=== PATIENT | female | born 1960 | race Caucasian/White ===

== ENCOUNTER → 2016-10-02 | Outpatient (CLI) | payer MEDICARE, MEDICAID ==
[~2016-10-02] MED LIST: ALPR0.5T PO; ASPI81TA50 PO; BACL10TA PO; BIOT1CAP3 PO; CHOL10003 PO; CYCL10TA2 PO; DOXA4TAB3 PO; GEMF600T3 PO; HYDR-2672 PO; HYDR-2762 PO; IBUP-1027 PO; INSU100V10 IJ; INSU100V8 SQ; METH-38 PO; MULT-658 PO; TIZA4CAP PO; VITMAIN; magnes
--- NOTE | 2016-10-03 01:28 | PAIN ---
DATE OF SERVICE: 10/02/2016 PROGRESS NOTE DIAGNOSES: 1. Myofascial pain. 2. Lumbar degenerative disk disease and post-lumbar laminectomy syndrome. 3. Cervical radiculopathy with cervical degenerative disk disease. HISTORY OF PRESENT ILLNESS: The patient is a 56-year-old female who returns for followup status post trigger point injections and medication management with both hydrocodone 7.5 and 10 mg for significant breakthrough pain. The patient reports she has had a recent upper respiratory cold and cough with significant pain left in the upper back as well as the low back and shoulders. The patient reports the cold and cough had exacerbated her pain significantly. She just finished a round of Augmentin and albuterol inhaler she is using currently, still has a bit of a cough, but her pain is increased, it is 9 on a scale of 10. The patient reports constant and stabbing as well as the burning pain between the shoulders bilaterally. The patient reports no new motor or sensory deficits; however, reports about 60% to 70% improvement with the medications currently, but has been taking more of the 10 mg more recently. The patient reports no side effects with the medication. Rates the pain as 9 on a scale of 10 today. The patient's old chart was reviewed as her current medication regimen updated. Current review of systems updated today as well. PHYSICAL EXAMINATION: VITAL SIGNS: Today, blood pressure is 143/84, pulse 84, respirations 20, temperature 98.1 degrees Fahrenheit, height is 5 feet 9 inches, weight 166 pounds. GENERAL: The patient is awake, alert, oriented, appropriate, very pleasant demeanor. HEENT: Head shows normocephalic, atraumatic. Extraocular movements are intact and symmetrical. Oral cavity, mucous membranes are moist and pink. Dentition is intact. NECK: Shows anterior throat supple without palpable lymphadenopathy noted. Swallow reflex is symmetrical. Neck shows full rotational motion of cervical spine. CHEST: Shows breath sounds clear to auscultation bilaterally. HEART: Shows S1 and S2 clear. ABDOMEN: Soft, nontender, nondistended. No palpable organomegaly is noted. BACK: Shows grossly midline spine, the paraspinous musculature in the cervical distribution shows some firm rope-like musculature in the inferior and middle aspect of the posterior paraspinous musculature, also into the superior medial and lateral trapezius slightly worse on the right than the left, but symmetrical in appearance. No radiation of pain. There is rope-like musculature, very firm, tender, greater on the right than the left, again in the rhomboid and the thoracic paraspinous musculature, diffusely tender as well without radiation. PLAN: Options were discussed with the patient. We will refill the patient's hydrocodone, both 7.5 and 10 mg sizes with only 20 of the 10 mg, given a 2-month supply of the 7.5 mg. The patient will wait until she is over her cold. I will have her return in approximately 4 weeks' potential for trigger point injections at that time if necessary. KELY MORTENSEN MD DR: CHEL/gomez JOB#: [id number] / [id number]
== END | disposition home or self-care (01) ==
LOC: PNCL 10:10
PROVIDERS: ATTEND Anesthesiology
DX: M51.36 Other intervertebral disc degeneration, lumbar region (principal); M96.1 Postlaminectomy syndrome, not elsewhere classified; M79.1 Myalgia; M50.30 Other cervical disc degeneration, unspecified cervical region
CPT/HCPCS: G0463

== ENCOUNTER → 2016-11-27 | Outpatient (CLI) | payer MEDICARE, MEDICAID ==
[~2016-11-27] MED LIST changes: +BUPIVACAINE MPF 0.25% 10 ML VIAL. ONE; +IOHEXOL 180 MG/ML 10 ML VIAL. ONE; +methylPREDNISolone ACETATE 40 MG/ML VIAL. ONE
--- NOTE | 2016-11-28 05:46 | PN ---
DATE: DIAGNOSES: 1. Myofascial pain. 2. Lumbar degenerative disk disease with lumbar post-laminectomy syndrome. 3. Left greater trochanteric bursitis. HISTORY OF PRESENT ILLNESS: The patient is a 56-year-old female who returns for followup status post trigger point injection as well as medication management with hydrocodone, has been doing fairly well with significant pain in her left hip over the past month or so. The patient reports it 10 on scale 10. It has been "popping out" on the left if she bent down at home and ____ back up and has significant knife-like pain in the left lateral aspect of the thigh and the gluteus, which has been significantly painful, feels that her leg has been popping out of joints. The patient reports she has had no actual dislocation for hip or any injury that might cause that, but it feels that way when she is walking. She is having to grab her lateral thigh, which is very tender and painful as well as the posterior gluteus and inferior aspect as well. The patient reports otherwise doing fairly well. Her neck and upper extremities and shoulders are doing better, still with some muscular pain now, but the pain in her left hip is much more significant. The patient reports no other motor or sensory deficits. No new bowel or bladder incontinence or other complaints. PHYSICAL EXAMINATION: VITAL SIGNS: The patient's blood pressure is ____, pulse 81, respirations 18, and temperature 98.0 degrees Fahrenheit. Height is 5 feet 9 inches. Weight 165 pounds. GENERAL: The patient is awake, alert, oriented, appropriate, very pleasant demeanor. HEENT: Head shows normocephalic, atraumatic. Extraocular movements are intact and symmetrical. Oral cavity, mucous membranes moist and pink. Dentition is intact. NECK: Shows anterior throat supple without palpable lymphadenopathy noted. Swallow reflex is symmetrical. CHEST: Shows normal on inspection. Breath sounds are clear to auscultation bilaterally. HEART: Shows S1 and S2 clear. ABDOMEN: Soft, nontender, and nondistended. No palpable organomegaly is noted. No rebound or guarding demonstrated. BACK: Shows spine grossly midline. Moderate tenderness to palpation in the inferior aspect of the cervical paraspinous musculature as well as the rhomboid distributions in the superior and medial trapezius bilaterally, somewhat more on the right than the left with some minor areas of trigger point regions of musculature, which is very tender and firm and rope-like with palpation. The patient's lower extremities showed deep tendon reflexes at 1+ in the patellar and tendo calcaneus tendons are equal. Motor exam is approximately 4 on a scale of 5, but symmetrical with dorsiflexion, extension, quadriceps and hamstring flexion bilaterally. Examination of the patient's hip shows significant tenderness with palpation over the left greater trochanter with even moderate palpation. The patient pulls away from examining hand significantly, reports significant severe pain. The patient also has some tenderness over the posterior gluteus diffusely and over the ischial tuberosity with the left hip flexed, but not on the right side and right lateral trochanter shows no tenderness. Options were discussed with the patient. The patient's old chart was reviewed as her current medication regimen updated. Current review of systems updated today as well. We will proceed with left greater trochanteric bursa injection with C-arm fluoroscopic guidance again today. Risks were discussed including but not limited to bleeding, infection, possibility of intravascular injection sequelae, spread of local anesthetic and numbness, side effects of steroid medications, exposure to fluoroscopy and poor results regarding pain control. The patient understands and wishes to proceed. The patient will return to clinic in approximately 2 weeks for followup, was counseled on return appointment, activity level and side effects to be aware of. DIAGNOSIS: Left greater trochanteric bursitis. PROCEDURES: Left greater trochanteric bursa injection with C-arm fluoroscopic guidance under sterile prep and drape using local anesthetic. MEDICATIONS INJECTED: Depo-Medrol 40 mg plus 3 mL of preservative-free 0.25% bupivacaine. CONDITION AT DISCHARGE: Stable. The patient tolerated procedure well, had no complications. KELY MORTENSEN MD DR: CHEL/gomez JOB#: [id number] / [id number]
== END | disposition home or self-care (01) ==
LOC: PNCL 11:23
PROVIDERS: ATTEND Anesthesiology
DX: M70.62 Trochanteric bursitis, left hip (principal); M51.36 Other intervertebral disc degeneration, lumbar region; M96.1 Postlaminectomy syndrome, not elsewhere classified
CPT/HCPCS: 20610; 77002; J1030; J3490; 20605

== ENCOUNTER → 2017-01-22 | Outpatient (CLI) | payer MEDICARE, MEDICAID ==
[~2017-01-22] MED LIST changes: -IOHEXOL 180 MG/ML 10 ML VIAL. ONE
--- NOTE | 2017-01-23 02:21 | PAIN ---
DATE OF SERVICE: 01/22/2017 DIAGNOSES: 1. Myofascial pain. 2. Lumbar degenerative disk disease with post lumbar laminectomy syndrome. 3. Left greater trochanteric bursitis. HISTORY OF PRESENT ILLNESS: The patient is a 56-year-old female who returns for followup, last seen 11/27/2016. The patient did very well after left greater trochanteric injection about 90% improved. The patient's main complaint today is left elbow pain. She is doing some increased activity in her house picking up lot of sticks and debris in the yard with some significant pain in the left elbow, mostly in the lateral aspect and also in the medial aspect. The patient reports it is very painful, it is hurting significantly. She also poked herself in the eye with a tonio mack branch and had significant pain in her right eye, but this has resolved, this was about 3-4 weeks ago and it caused her to use ____ hydrocodone and normally secondary to the pain, the patient reports otherwise doing well. No new motor or sensory deficits. She ____ hydrocodone without side effects and maintaining hydration. The patient reports she has been awakening from sleep about 3-4 times at night with her left elbow hurting, has to reposition, take pain medicine, get out of bed and walk around, otherwise doing well. The patient reports the pain is a 10 on a scale of 10 in the left arm, it is aching, sharp, dull, tight, tingling and unbearable in the elbow. The patient reports no new motor or sensory deficits, no new bowel or bladder incontinence. PHYSICAL EXAMINATION: VITAL SIGNS: The patient's blood pressure 141/77, pulse 73, respirations are 18, temperature 98.3 degrees Fahrenheit, height is 5 feet 8 inches, weight 165 pounds. GENERAL: The patient is awake, alert, oriented, appropriate, very pleasant demeanor. HEENT: Head shows normocephalic, atraumatic. Extraocular movements are intact and symmetrical. Oral cavity shows mucous membranes moist and pink. Dentition is intact. NECK: Shows anterior throat supple without palpable lymphadenopathy noted. Swallow reflex is symmetrical. CHEST: Shows normal on inspection. Breath sounds clear to auscultation bilaterally. HEART: Shows S1 and S2 clear. No murmurs auscultated. ABDOMEN: Soft, nontender, nondistended. No palpable organomegaly is noted. No rebound or guarding demonstrated. BACK: Shows spine grossly in the midline. There is some mild tenderness with palpation in the lower lumbar distribution and also in the shoulders and the superior medial trapezius, but without specific radiation or asymmetry. The patient shows some decreased pain, but still some mild pain over the left greater trochanter of the hip, but without radiation. On exam today, the patient's upper extremities showed significant tenderness over the left elbow, mostly with palpation over the tendon insertions of the flexor tendon on the lateral and medial elbow. Options were discussed with the patient and the patient's old chart was reviewed as her current medication regimen updated. Current review of systems updated to date as well. We will proceed with trigger point injections of the flexor tendons on the medial aspect and lateral aspect of the elbow. Risks were discussed including but not limited to bleeding, infection, possibility of intravascular injection sequelae, spread of local anesthetic and numbness, side effects of steroid medication and poor results regarding pain control. The patient understands and wishes to proceed. The patient will return to the clinic in approximately 2 weeks for followup. She was counseled on return appointment, activity level and side effects to be aware of. The patient given refill prescription for hydrocodone both 7.5 mg and 10 mg 20 tablets for increased pain as she may experience after her injections or when she is working in the yard as she has done well with this in the past with only limited number of these without side effects. The patient was counseled as to return appointment as well as activity level and side effects to be aware of with the medications and injections today. DIAGNOSIS: Myofascial pain. PROCEDURE: Trigger point injections left elbow in the insertions of the medial and lateral flexor tendons. Medications injected is total of 40 mg Depo-Medrol and total of 4 mL of 0.25% bupivacaine after negative aspiration at each level. CONDITION AT DISCHARGE: Stable. The patient tolerated procedure well, had no complications. KELY MORTENSEN MD DR: CHEL/gomez JOB#: [id number] / [id number]
== END | disposition home or self-care (01) ==
LOC: PNCL 10:15
PROVIDERS: ATTEND Anesthesiology
DX: M79.1 Myalgia (principal); M51.36 Other intervertebral disc degeneration, lumbar region; M96.1 Postlaminectomy syndrome, not elsewhere classified
CPT/HCPCS: 20552; J1030; J3490

== ENCOUNTER → 2017-04-16 | Outpatient (CLI) | payer MEDICARE, MEDICAID ==
[~2017-04-16] MED LIST changes: -HYDR-2672 PO; +HYDR-2766 PO; -INSU100V10 IJ; +INSU100V11 IJ
== END | disposition home or self-care (01) ==
LOC: PNCL 11:25
PROVIDERS: ATTEND Anesthesiology
DX: M79.1 Myalgia (principal); M51.36 Other intervertebral disc degeneration, lumbar region; M96.1 Postlaminectomy syndrome, not elsewhere classified; M70.62 Trochanteric bursitis, left hip; Z88.6 Allergy status to analgesic agent; Z91.048 Other nonmedicinal substance allergy status
CPT/HCPCS: 20552; J1030; J3490

== ENCOUNTER → 2017-06-11 | Outpatient (CLI) | payer MEDICARE, MEDICAID ==
[~2017-06-11] MED LIST changes: -BUPIVACAINE MPF 0.25% 10 ML VIAL. ONE; -methylPREDNISolone ACETATE 40 MG/ML VIAL. ONE
--- NOTE | 2017-06-11 12:20 | PAIN ---
DATE OF SERVICE: 06/11/2017 DIAGNOSES: 1. Myofascial pain. 2. Lumbar degenerative disk disease with post-lumbar laminectomy syndrome. 3. Left greater trochanteric bursitis. HISTORY OF PRESENT ILLNESS: Ms. Burris is a 57-year-old female who returns for followup, status post trigger point injections, most recently, and left elbow flexor tendon insertion injection. The patient reports she did very well with this, about 85% improvement overall. Still has some pain returning in the elbow, but only very minimal. She has been increasing her activity with greater ease and comfort, with much better success and pain control in the left arm, especially. The patient reports some pain in the base of the neck, shoulders, upper back and into the left arm and to elbow again, but much reduced from what it was previously. The patient reports the pain is 10 on a scale of 10 at its worst, 9 on average, and is 5 on a scale of 10 currently, and is 5 when has least rating. The patient reports no new motor or sensory deficits, no new bowel or bladder incontinence or other complaints. Overall feels that she is doing better. PAST MEDICAL HISTORY: Significant for diverticulosis, hearing loss, headaches, irritable bowel syndrome. Also includes diabetes, insulin-dependent. PREVIOUS SURGERY: Include hysterectomy, lumbar spine surgery, tonsillectomy, adenoids, right ankle surgery, cholecystectomy, jaw surgery. CURRENT MEDICATIONS AND REVIEW OF SYSTEMS: The patient's current medication list was updated and reviewed today, as was her review of systems which is positive for those items mentioned in history of present illness. All systems reviewed and otherwise negative. ALLERGIES: THE PATIENT IS ALLERGIC TO TAPE, CODEINE AND MOLD. PHYSICAL EXAMINATION: VITAL SIGNS: Today, the patient's blood pressure is 132/60, pulse 68, respirations are 18, temperature is 98.2 degrees Fahrenheit, height is 5 feet 9 inches, weight 163 pounds. GENERAL: The patient is awake, alert, oriented, appropriate, very pleasant demeanor. HEENT: Examination shows normocephalic, atraumatic. Extraocular movements are intact and symmetrical. The patient wears eyeglasses. Oral cavity, mucous membranes are moist and pink. Dentition is intact. NECK: Shows anterior throat supple without palpable lymphadenopathy noted. Swallow reflex is symmetrical. Neck shows full rotational motion of the cervical spine without tenderness or difficulty. CHEST: Shows normal on inspection. Breath sounds clear to auscultation bilaterally. HEART: Shows S1 and S2 clear. ABDOMEN: Soft, nontender, nondistended. No palpable organomegaly is noted. No rebound or guarding demonstrated. BACK: Shows spine grossly midline. Normal appearing thoracic kyphosis, some previous surgical scar is noted in the lumbar distribution with some flattening of lumbar lordotic curvature. No tenderness over the sacrum or sacroiliac regions. Paraspinous musculature in the lumbar distribution shows some mild tenderness also in the mid thoracic distribution, between the shoulder blades and the rhomboid musculature. Very moderately tender, diffusely, but without trigger points or radiation. EXTREMITIES: Lower extremities showed deep tendon reflexes at 1+ in the patellar and tendo-calcaneus tendons. Motor exam is strong with 5/5 dorsiflexion and extension. Upper extremities showed deep tendon reflexes 2+ in the biceps and triceps tendons. 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 Left elbow showed some moderate tenderness on the lateral epicondyle with deep palpation but only in this region. Anterior medial is nontender with palpation at this time. PLAN: Options were discussed with the patient. The patient's old chart was reviewed, as was her current medication regimen updated. Current review of systems updated today as well. We will hold on any further injections, as she is doing quite a bit better and would like to hold on this at this time. We will refill the patient's medication. She is doing well with hydrocodone 7.5 mg with occasional 10 mg. We gave her 20 of these to last for 2 months. She has no problem with these. She has had appropriate K-TRACS reporting as well as appropriate urinalysis to date. Also patient will follow up in approximately 2 months. We gave 2-month prescription with instructions, side effects to be aware of. Also discussed the patient's activity level, especially with her left elbow and to increase activity as tolerated. To maintain stretching and strengthening exercises with her back. Also to watch her glucose levels very closely as her diabetes has been somewhat hard to control in the past, with regards to alcohol intake as well as diet in general, and hydration. The patient understands and agrees and will follow up as scheduled. KELY MORTENSEN MD DR: CHEL/gomez JOB#: [id number] / [id number]
== END | disposition home or self-care (01) ==
LOC: PNCL 10:30
PROVIDERS: ATTEND Anesthesiology
DX: M51.36 Other intervertebral disc degeneration, lumbar region (principal); M79.1 Myalgia; K58.9 Irritable bowel syndrome, unspecified; Z79.4 Long term (current) use of insulin; E11.9 Type 2 diabetes mellitus without complications; M70.62 Trochanteric bursitis, left hip
CPT/HCPCS: G0463

== ENCOUNTER → 2017-09-03 | Outpatient (CLI) | payer MEDICARE, MEDICAID ==
[~2017-09-03] MED LIST changes: +BUPIVACAINE MPF 0.25% 10 ML VIAL. ONE; +methylPREDNISolone ACETATE 40 MG/ML VIAL. ONE
--- NOTE | 2017-09-03 21:45 | PAIN ---
DATE OF SERVICE: 09/03/2017 DIAGNOSES: 1. Myofascial pain. 2. Lumbar degenerative disk disease with lumbar post-laminectomy. 3. Left greater trochanteric bursitis. HISTORY OF PRESENT ILLNESS: The patient is a 57-year-old female who returns for a followup status post medication management with hydrocodone, also trigger point injections and left elbow medial and lateral flexor tendon insertion injections. The patient last had these in March of this year, did very well, but her elbow is becoming much more painful. She has been using it with some patient care techniques. One of her aunts who recently and it has aggravated her elbow significantly. She has seen her primary care physician about this and has recommended a sling for about 6 weeks. The patient had been unable to do this so far as she had too much activity to take care of and work at home to do. The patient reports still significant pain in the left arm, elbow, radiating to the forearm both medially and laterally at the epicondyles on the elbow as she had previously. The patient reports otherwise significant low back pain fairly well controlled with her medications without significant side effects. The patient reports about 70-80% improvement with the medications in the low back, but the elbow is significantly more painful. The patient rates the elbow pain a 10 on a scale 10 at its worst, 8-9 on average and 5 at its least and is an 8 today. The patient reports it is cramping, aching, burning, tight. It is becoming severe and unbearable at times into the left elbow. The low back, however, is aching and dull, mostly better with sitting and resting, worse with walking and standing. No significant radiation to the lower extremities, some on the right leg only. The patient reports it does not awaken her from sleep at night from her back, but her arm does when she lies on her left side. Even getting dressed, doing a repetitive motions or reaching over head aggravates the pain as well. PHYSICAL EXAMINATION: VITAL SIGNS: Today, the patient's blood pressure is 151/60, pulse 90, respirations 18, temperature is 98.0 degrees Fahrenheit, height is a 5 feet 9 inches, weight is 165 pounds. GENERAL: The patient is awake, alert, oriented, appropriate, very pleasant demeanor. HEENT: Shows normocephalic, atraumatic. Extraocular movements are intact, symmetrical. Oral cavity shows mucous membranes are moist and pink. Dentition is intact. NECK: Shows anterior throat is supple without palpable lymphadenopathy noted. Swallow reflex is symmetrical. CHEST: Shows normal on inspection. Breath sounds are clear to auscultation bilaterally. HEART: Shows S1, S2 clear. ABDOMEN: Soft, nontender, nondistended. No palpable organomegaly is noted. No rebound or guarding demonstrated. MUSCULOSKELETAL: Back shows spine grossly in the midline. Well healed surgical scars noted in the lumbar distribution with some minor flattening of the lumbar lordotic curvature. No significant tenderness noted with palpation of the lumbar paraspinous muscles, which are symmetrical. Good rotational motion both laterally as well as extension and flexion performed at the lumbar spine without difficulty or pain reported. The patient's lower extremities show deep tendon reflexes 1+ in the patellar and tendo-calcaneus tendons. Motor exam is strong with 5/5 dorsiflexion, extension, quadriceps and hamstring flexion and equal. Upper extremities show deep tendon reflexes at 2+ in the biceps, triceps tendons. Significant tenderness over the medial and lateral epicondyle of the left elbow with even light palpation varies significantly tender. No obvious swelling, no erythema or changes. The patient shows good motion of the elbow with both rotation, with pronation, supination as well as flexion and extension of the elbow, but significantly guarded and slow and deliberate movements. Right side is normal. Peripheral pulses are 2+, radial distribution. No peripheral edema is noted. PLAN: Options were discussed with the patient. The patient's old chart was reviewed as her current medication regimen and updated. Current review of systems updated today as well. We will proceed with injection of the medial and lateral flexor tendon insertions at the left elbow. Risks were discussed including but not limited to bleeding, infection, possibility of intravascular injection sequelae, spread of local anesthetic and numbness, side effects of steroid medication and poor results regarding pain control. The patient understands and wished to proceed. The patient will return to the clinic in approximately 4 weeks for a followup, was counseled on return appointment, activity level and side effects to be aware of. The patient also cautioned to watch her blood sugar as she has had some difficulty regulating this as well and we will only use 20 mg of Depo-Medrol today. She acknowledges this as well. DIAGNOSES: 1. Myofascial pain. 2. Lumbar post-laminectomy syndrome with lumbar degenerative disk disease. PROCEDURE: Left elbow flexor tendon insertion injection at the medial and lateral epicondyle under sterile prep and drape using local anesthetic. MEDICATIONS INJECTED: A total of 20 mg Depo-Medrol plus total of 6 mL of 0.25% bupivacaine, 3 mL at each side after negative aspiration each. The patient's condition at discharge is stable. The patient tolerated the procedure well, had no complications. The patient was given a refill for hydrocodone with instructions and side effects to be aware of, was given her a 2-month refill as well. The patient has had appropriate K-TRACS reporting as well as urinalysis to date. We will have urinalysis done today as well as routine screening. KELY MORTENSEN MD DR: CHEL/gomez JOB#: [id number] / [id number]
== END | disposition home or self-care (01) ==
LOC: PNCL 10:51
PROVIDERS: ATTEND Anesthesiology
DX: M79.1 Myalgia (principal); M96.1 Postlaminectomy syndrome, not elsewhere classified; M51.36 Other intervertebral disc degeneration, lumbar region; M70.62 Trochanteric bursitis, left hip; Z88.6 Allergy status to analgesic agent; Z91.048 Other nonmedicinal substance allergy status
CPT/HCPCS: 20552; J1030; J3490

== ENCOUNTER → 2017-10-29 | Outpatient (CLI) | payer MEDICARE, MEDICAID | END | disposition home or self-care (01) | LOC: PNCL 10:35 | DX: M51.36 Other intervertebral disc degeneration, lumbar region (principal); M70.62 Trochanteric bursitis, left hip | CPT/HCPCS: G0463 ==

== ENCOUNTER → 2018-01-26 | Outpatient (CLI) | payer MEDICARE, MEDICAID | END | disposition home or self-care (01) | LOC: PNCL 12:56 | DX: S22.21XD Fracture of manubrium, subsequent encounter for fracture with routine healing (principal); M51.36 Other intervertebral disc degeneration, lumbar region; Z87.891 Personal history of nicotine dependence; X58.XXXD Exposure to other specified factors, subsequent encounter | CPT/HCPCS: G0463 ==

== ENCOUNTER → 2018-03-23 | Outpatient (CLI) | payer MEDICARE, MEDICAID ==
[~2018-03-23] MED LIST changes: -ALPR0.5T PO; -ASPI81TA50 PO; -BACL10TA PO; -BIOT1CAP3 PO; -BUPIVACAINE MPF 0.25% 10 ML VIAL. ONE; +BUPIVACAINE MPF 0.25% 30 ML VIAL.; -CHOL10003 PO; -CYCL10TA2 PO; -DOXA4TAB3 PO; -GEMF600T3 PO; -HYDR-2762 PO; -HYDR-2766 PO; -IBUP-1027 PO; -INSU100V11 IJ; -INSU100V8 SQ; -METH-38 PO; -MULT-658 PO; -TIZA4CAP PO; -VITMAIN; -magnes; -methylPREDNISolone ACETATE 40 MG/ML VIAL. ONE
== END | disposition home or self-care (01) ==
LOC: PNCL 10:19
DX: M79.1 Myalgia (principal); M70.62 Trochanteric bursitis, left hip; M96.1 Postlaminectomy syndrome, not elsewhere classified; M51.36 Other intervertebral disc degeneration, lumbar region; Z88.5 Allergy status to narcotic agent; Z91.048 Other nonmedicinal substance allergy status
CPT/HCPCS: 20553; J3490

== ENCOUNTER → 2018-05-15 | Outpatient (CLI) | payer MEDICARE, MEDICAID ==
[~2018-05-15] MED LIST changes: +ALPR0.5T PO; +ASPI81TA50 PO; +BACL10TA PO; +BIOT1CAP3 PO; +BUPIVACAINE MPF 0.25% 10 ML VIAL. ONE; -BUPIVACAINE MPF 0.25% 30 ML VIAL.; +CHOL10003 PO; +CYCL10TA2 PO; +DOXA4TAB3 PO; +GEMF600T3 PO; +HYDR-2762 PO; +HYDR-2766 PO; +IBUP-1027 PO; +INSU100V11 IJ; +INSU100V8 SQ; +METH-38 PO; +MULT-658 PO; +TIZA4CAP PO; +VITMAIN; +magnes
--- NOTE | 2018-05-15 15:14 | PAIN ---
DATE OF SERVICE: 05/15/2018 DIAGNOSES: 1. Myofascial pain. 2. Lumbar degenerative disk disease and post-lumbar laminectomy syndrome. 3. Left greater trochanteric bursitis. HISTORY OF PRESENT ILLNESS: The patient is a 57-year-old female who returns for followup status post trigger point injection as well as medication management with hydrocodone. The patient reports she has been doing fairly well with this. She has been increasing her activity lately with some painting she has been doing at home, remodeling her house. The patient reports it has exacerbated her pain in the upper shoulders as well as the upper mid back significantly more on the right than the left. The patient reports it is very tender with rotational motion in both the shoulders, especially on the right side with a burning, aching pain in the upper mid back. The patient reports it is sharp, tight, burning, stabbing, constant, becoming more severe and more unbearable. The patient reports the pain is a 10 on a scale of 10 at its worst, 10 on average, 8 at its least and is an 8 today. The patient reports no new motor or sensory deficits, no new bowel or bladder incontinence or other complaints, but still significant pain between the shoulder blades and the upper back as well as the shoulders and base of the neck, more on the right side. The patient reports awakening her from sleep about every 7 hours. She is able to sleep better if she takes her pain medication before sleeping. The patient reports no new motor or sensory deficits, no new bowel or bladder incontinence or other complaints. PHYSICAL EXAMINATION: VITAL SIGNS: The patient's blood pressure 139/78, pulse 81, respirations are 16, temperature is 97.8 degrees Fahrenheit, weight is 169 pounds. GENERAL: The patient is awake, alert, oriented, appropriate, very pleasant demeanor. HEENT: Head shows normocephalic, atraumatic. Extraocular movements are intact, symmetrical. Oral cavity: Mucous membranes moist and pink. Dentition is intact. NECK: Shows anterior throat supple without palpable lymphadenopathy noted. Swallow reflex is symmetrical. CHEST: Shows normal with inspection. Breath sounds clear to auscultation bilaterally. HEART: Shows S1, S2 clear. No murmurs auscultated. ABDOMEN: Soft, nontender, nondistended. No palpable organomegaly is noted. No rebound or guarding demonstrated. BACK: Shows spine grossly in the midline. The patient's right rhomboid and thoracic paraspinous musculature shows hypertrophy on inspection compared to the left side with palpation shows significant tenderness throughout the bilateral rhomboid distribution of the thoracic paraspinous muscles with very firm rope-like musculature throughout both sides, worse with more pain on the right side and left without specific radiation. This is true into the trapezius musculature as well bilaterally, again more tender on the right than the left with very firm rope-like musculature consistent with trigger point areas of muscle bilaterally. The patient's neck shows good rotational motion both laterally as well as extension and flexion with some minor pain with extension in the upper superior medial trapezius bilaterally, again worse on the right than the left. EXTREMITIES: The patient's upper extremities show deep tendon reflexes at 2+ in the biceps and triceps tendons. Motor exam is strong with junior brand manager strength rated 5/5 as is bicep and tricep flexion. Peripheral pulses are 2+ radial distribution. No peripheral edema is noted. Options were discussed with the patient. The patient's old chart was reviewed as her current medication regimen and updated. Current review of systems is updated today as well. We will proceed with trigger point injections of the bilateral trapezius, bilateral rhomboid musculature and bilateral thoracic paraspinous musculature. Risks were again discussed including, but not limited to bleeding, infection, possibility of intravascular injection sequelae, spread of local anesthetic and numbness, pneumothorax, side effects of steroid medication and poor results regarding pain control. The patient understands and wished to proceed. The patient to return to clinic in approximately 2 weeks for followup. She was counseled on return appointment, activity level and side effects to be aware of. DIAGNOSES: 1. Myofascial pain. 2. Post-lumbar laminectomy syndrome. PROCEDURE: Trigger point injections, bilateral trapezius, bilateral rhomboid musculature, bilateral thoracic paraspinous musculature under sterile prep and drape using local anesthetic. MEDICATION INJECTED: A total of 12 mL of 0.25% bupivacaine after negative aspiration at each injection site. CONDITION AT DISCHARGE: Stable. The patient tolerated the procedure well, had no complications. KELY MORTENSEN MD DR: CHEL/gomez JOB#: [id number] / [id number]
== END | disposition home or self-care (01) ==
LOC: PNCL 07:38
PROVIDERS: ATTEND Anesthesiology
DX: M79.1 Myalgia (principal); M96.1 Postlaminectomy syndrome, not elsewhere classified; M51.36 Other intervertebral disc degeneration, lumbar region; M70.62 Trochanteric bursitis, left hip; Z79.84 Long term (current) use of oral hypoglycemic drugs; Z79.4 Long term (current) use of insulin; Z79.899 Other long term (current) drug therapy; Z88.5 Allergy status to narcotic agent; Z91.048 Other nonmedicinal substance allergy status
CPT/HCPCS: 20553; J3490

== ENCOUNTER → 2018-07-10 | Outpatient (CLI) | payer MEDICARE, MEDICAID ==
[~2018-07-10] MED LIST changes: -BUPIVACAINE MPF 0.25% 10 ML VIAL. ONE; +BUPIVACAINE MPF 0.25% 30 ML VIAL. ONE; -GEMF600T3 PO; +GEMF600T4 PO
--- NOTE | 2018-07-11 07:08 | PAIN ---
DATE OF SERVICE: 07/10/2018 PROGRESS NOTE FOR PAIN CLINIC DIAGNOSES: 1. Myofascial pain. 2. Lumbar degenerative disk disease with lumbar post laminectomy syndrome. HISTORY OF PRESENT ILLNESS: The patient is a 58-year-old female who returns for followup status post medication management with both hydrocodone and Zanaflex. The patient reports she has been doing fairly well with this, had some trigger point injections performed on last visit, which was on 05/15/2018. The patient did very well with these with about 65% improvement for about a month following the injections in the upper back and neck as well as the low back. The patient reports that this is beginning to return. She has been increasing her activity at home. She is still remodeling a part of her home and has been more active lately, which has been exacerbating the pain to some extent. The patient reports the base of the neck and shoulders causing some significant headaches when the pain in the neck is at its worse into the right shoulder, primarily, but also in the upper back, mid back and low back. The patient reports it is aching, sharp, tight, tingling, burning, becoming more constant and severe on and off. The patient reports it is a 10 on scale of 10 at its worst, 9 on average, 5 at its least and is a 9 today. The patient reports no new motor or sensory deficits, no side effects with the medications. The patient reports it awakens her from sleep at night, especially in the right shoulder and the neck. PHYSICAL EXAMINATION: VITAL SIGNS: The patient's blood pressure is 141/76, pulse 91, respirations 18, temperature 98.4 degrees Fahrenheit. Height is 69 inches, weight is 172 pounds. GENERAL: The patient is awake, alert, oriented, appropriate, very pleasant demeanor. HEENT: Shows normocephalic, atraumatic. Extraocular movements are intact, symmetrical. Oral cavity: Mucous membranes moist and pink. Dentition shows partials and dentures. Upper and lower neck shows anterior throat supple without palpable lymphadenopathy noted. Swallow reflex is symmetrical. CHEST: Shows normal on inspection. Breath sounds are clear to auscultation bilaterally. HEART: Shows S1, S2 clear. No murmurs auscultated. ABDOMEN: Soft, nontender, nondistended. No palpable organomegaly is noted. No rebound or guarding demonstrated. BACK: Shows spine grossly in the midline. The patient's neck shows posterior cervical musculature very firm, very tender rope-like musculature throughout the upper, middle and lower distribution of the cervical paraspinous musculature, more on the right than the left with very firm rope-like musculature consistent with trigger point areas of muscle into the superior medial and lateral trapezius, again worse on the right than the left, but without specific radiation. This is true into the rhomboid musculature as well as the thoracic paraspinous musculature, again more tender on the right than the left with multiple areas of rope-like musculature consistent with trigger point areas of muscle and this is true into the upper part of the lumbar paraspinous musculature as well, again more tender on the right than the left with palpation, but without specific radiation. Options were discussed with the patient. The patient's old chart was reviewed as her current medication regimen updated. Current review of systems updated today as well and we will proceed with trigger point injections of the aforementioned musculature. Risks were again discussed including, but not limited to bleeding, infection, possibility of intravascular injection sequelae, spread of local anesthetic and numbness, side effects of steroid medication, pneumothorax as well as poor results regarding pain control. The patient understands and wished to proceed. The patient will return to clinic in approximately 4 weeks for followup. She was counseled to return appointment, activity level and side effects to be aware of. The patient also was given refill prescription for hydrocodone 7.5 mg and also 40 tablets of 10 mg hydrocodone to use sparingly over the next 2 months. The patient has had appropriate K-TRACS reporting as well as appropriate urinalysis to-date and we will have her followup approximately in 1 month if necessary for trigger point injections or 2 months if doing well for medication evaluation and refill potentially that time. DIAGNOSES: 1. Myofascial pain, multiple areas. 2. Degenerative disk disease with lumbar post-laminectomy syndrome. PROCEDURE: Trigger point injections to bilateral cervical paraspinous musculature, bilateral trapezius musculature, bilateral thoracic paraspinous musculature, bilateral lumbar paraspinous musculature under sterile prep and drape using local anesthetic. MEDICATION INJECTED: A total of 16 mL of 0.25% bupivacaine after negative aspiration at each injection site. CONDITION AT DISCHARGE: Stable. The patient tolerated procedure well, had no complications. KELY MORTENSEN MD DR: Shyla JOB#: [id number] / [id number]
== END | disposition home or self-care (01) ==
LOC: PNCL 10:18
PROVIDERS: ATTEND Anesthesiology
DX: M79.18 Myalgia, other site (principal); M70.62 Trochanteric bursitis, left hip; M96.1 Postlaminectomy syndrome, not elsewhere classified; M51.36 Other intervertebral disc degeneration, lumbar region; Z79.4 Long term (current) use of insulin; Z79.1 Long term (current) use of non-steroidal anti-inflammatories (NSAID); Z79.899 Other long term (current) drug therapy; Z88.5 Allergy status to narcotic agent; Z79.84 Long term (current) use of oral hypoglycemic drugs; Z91.048 Other nonmedicinal substance allergy status; Z98.890 Other specified postprocedural states
CPT/HCPCS: 20553; J3490

== ENCOUNTER → 2018-09-07 | Outpatient (CLI) | payer MEDICARE, MEDICAID ==
[~2018-09-07] MED LIST changes: -BUPIVACAINE MPF 0.25% 30 ML VIAL. ONE; -GEMF600T4 PO; +GEMF600T8 PO; -HYDR-2762 PO; +HYDR-2765 PO; -HYDR-2766 PO; +HYDR-2769 PO
--- NOTE | 2018-09-07 21:58 | PAIN ---
DATE OF SERVICE: 09/07/2018 PROGRESS NOTE FOR PAIN CLINIC DIAGNOSES: 1. Myofascial pain. 2. Lumbar degenerative disk disease with lumbar post-laminectomy syndrome. 3. Left greater trochanteric bursitis. HISTORY OF PRESENT ILLNESS: The patient is a 58-year-old female who returns for followup status post trigger point injections as well as medication management with hydrocodone, both 7.5 mg and 10 mg for a more severe pain. The patient has been quite active. The patient reports she is doing very well and has a very balanced regimen, which is effective for her with about a 60%-70% improvement overall. The patient reports no significant side effects. She has been increasing her activities, doing some work on her home and this is stopped at this point. So, she is doing a little bit better but still significant pain in the low back, mid back, upper back base of the neck and shoulders, low back, radiating to the right lower extremity, posterior gluteus, posterior thigh. The patient reports it is aching, sharp, tight, shooting, cramping, sometimes constant, sometimes severe, off and on in the leg but mostly in the back itself. The patient reports it is a 10 on a scale of 10 at its worst, 8 on average, 4 at its least and is an 8 today. The patient reports no new motor or sensory deficits and no new bowel or bladder incontinence for about 2 months. She was working on her front porch and was able to do with greater ease and comfort after some trigger point injections on her last visit in the upper neck, back and shoulders as well as the thoracic and lumbar paraspinous musculature. The patient reports she is doing a little better now with the medications help. She is sleeping better at night but wakes up from sleep from the pain but not more than about every 7 hours, so she is getting most of a good night sleep by her report. The patient reports no side effects with the medication. No new motor or sensory deficits or other complaints. PHYSICAL EXAMINATION: VITAL SIGNS: The patient's blood pressure 147/96, pulse 99, respirations 16, temperature is 98.4 degrees Fahrenheit and weight is 172 pounds. GENERAL: The patient is awake, alert, oriented, appropriate and very pleasant demeanor. HEENT: Head shows normocephalic and atraumatic. Extraocular movements are intact and symmetrical. Oral cavity: Mucous membranes moist and pink. Dentition is intact. NECK: Shows anterior throat supple without palpable lymphadenopathy noted. Swallow reflex symmetrical. CHEST: Shows normal with inspection. Breath sounds clear to auscultation bilaterally. HEART: Shows S1 and S2 clear. No murmurs auscultated. ABDOMEN: Soft, nontender and nondistended. No palpable organomegaly is noted. No rebound or guarding demonstrated. BACK: The patient's back shows spine grossly in the midline. Normal appearing thoracic kyphosis and lumbar lordotic curvature. The patient's paraspinous muscle shows symmetrical on inspection with some moderate tenderness throughout the upper, middle and lower distribution of the thoracic paraspinous musculature as well as the upper, middle and lower distribution of the lumbar paraspinous muscles, again only diffusely without specific trigger points and without specific radiation. The patient shows good rotational motion of the low back, both laterally as well as extension and flexion without significant difficulty. EXTREMITIES: The patient's lower extremities show deep tendon reflexes at 1+ patellar and tendo-calcaneus tendons are equal. Motor exam is strong with 5/5 dorsiflexion, extension, quadriceps and hamstring flexion and symmetrical. Peripheral pulses are 1+ posterior tibia. No peripheral edema is noted bilaterally. Options were discussed with the patient. The patient's old chart was reviewed as well as her current medication regimen updated. Current review of systems updated today as well and we will hold on any further injections at this time. The patient was given refill medication for hydrocodone for 2-month prescription as the patient has had appropriate K-TRACS reporting as well as appropriate urinalysis to date. The patient was given instruction as well as side effects to be aware of with the medication and will follow up in approximately 2 months as scheduled or sooner as necessary. KELY MORTENSEN MD DR: CHEL/gomez JOB#: [id number] / [id number]
== END | disposition home or self-care (01) ==
LOC: PNCL 11:23
PROVIDERS: ATTEND Anesthesiology
DX: M51.36 Other intervertebral disc degeneration, lumbar region (principal); M96.1 Postlaminectomy syndrome, not elsewhere classified; M70.62 Trochanteric bursitis, left hip; M79.18 Myalgia, other site
CPT/HCPCS: G0463

== ENCOUNTER → 2018-11-02 | Outpatient (CLI) | payer MEDICARE, MEDICAID ==
[~2018-11-02] MED LIST changes: +BUPIVACAINE MPF 0.25% 10 ML VIAL. ONE
--- NOTE | 2018-11-02 18:14 | PAIN ---
DATE OF SERVICE: 11/02/2018 PROGRESS NOTE FOR PAIN CLINIC DIAGNOSES: 1. Myofascial pain. 2. Lumbar degenerative disk disease with lumbar post laminectomy syndrome. 3. Left greater trochanteric bursitis. HISTORY OF PRESENT ILLNESS: The patient is a 58-year-old female who returns for followup status post trigger point injection as well as medication management with hydrocodone and Flexeril. The patient reports she is doing fairly well with the medications with about a 60-70% improvement with medications, but lately, the muscles have been much more tender, firm and stiff in the base of the neck, more on the right than the left, in the upper back and shoulder with radiation to the right arm as well. The patient reports pain is a 10 on a scale of 10 at its worst, 8 on average, 6 at its least and is a 7 today. The patient reports it is aching, sharp, tight, cramping, burning, becoming more constant, radiating to the right side in the right arm and more severe. The patient reports it is worse with activity, using her right upper extremity, turning her neck to the left side. The right side causes pain down into the shoulder blade posteriorly on the right as well, some on the left, but not nearly as painful. The patient reports no new motor or sensory deficits. Initially, she was doing very well after the last trigger points as well as medication management with increased activity, walking and doing household activities as she is remodeling her home and has been able do this with much greater ease and comfort until the last 3-4 weeks or so. The patient reports no new changes. It does not awaken her from sleep on most nights. No new bowel or bladder incontinence. PHYSICAL EXAMINATION: VITAL SIGNS: The patient's blood pressure is 139/79, pulse 84, respirations 18, temperature 97.7 degrees Fahrenheit. Height is 5 feet 8 inches, weighs 170 pounds. GENERAL: The patient is awake, alert, oriented, appropriate, very pleasant demeanor. HEENT: Head shows normocephalic, atraumatic. Extraocular muscles are intact and symmetrical. Oral cavity: Mucous membranes are moist and pink. Dentition is intact. NECK: Shows anterior throat supple without palpable lymphadenopathy noted. Swallow reflex is symmetrical. CHEST: Shows normal with inspection. Breath sounds are clear to auscultation bilaterally. HEART: Shows S1, S2 clear. No murmurs auscultated. ABDOMEN: Soft, nontender, nondistended. No palpable organomegaly is noted. No rebound or guarding demonstrated. MUSCULOSKELETAL: Back shows spine grossly in the midline. Cervical paraspinous muscle shows symmetrical on inspection, but very firm, rope-like musculature bilaterally in the superior, middle and lower distribution of the cervical paraspinous musculature into the superior medial trapezius, more on the right than the left, but present bilaterally, again with more firm, rope-like musculature, very tender consistent with trigger point areas of muscle. This is true into the rhomboid distribution, again worse on the right than the left into the thoracic paraspinous musculature, worse on the right than left, but present bilaterally with rope-like musculature consistent with trigger point areas, but without specific radiation. The patient's neck shows good rotational motion, somewhat guarded with extension and flexion, but good rotation of right and left lateral rotation, again some moderate pain described with right lateral rotation past 45 degrees, but not left. The patient's upper extremities show deep tendon reflexes 2+ in the biceps and triceps tendons. Motor exam is strong with wastewater project engineer strength rated 5/5, as is bicep and tricep flexion. CHEST: Shows normal on inspection. Breath sounds clear to auscultation bilaterally. HEART: Shows S1 and S2 clear. No murmurs auscultated. ABDOMEN: Soft, nontender, nondistended. Options were discussed with the patient. The patient's old chart was reviewed as her current medication regimen updated. Current review of systems updated today as well. We will proceed with trigger point injections of the aforementioned musculature. Risks were again discussed including, but not limited to, bleeding, infection, possibility of intravascular injection sequelae, side effects of steroid medication, possible pneumothorax as well as poor results regarding pain control. The patient understands and wishes to proceed. The patient will return to clinic in approximately 4 weeks for followup. She was counseled on return appointment, activity level and side effects to be aware of. DIAGNOSIS: Myofascial pain. PROCEDURE: Trigger point injections, bilateral cervical paraspinous musculature, bilateral trapezius musculature, bilateral thoracic paraspinous musculature under sterile prep and drape using local anesthetic. MEDICATION INJECTED: A total of 12 mL of 0.25% bupivacaine after negative aspiration of each injection site. CONDITION ON DISCHARGE: Stable. The patient tolerated the procedure well, had no complications. KELY MORTENSEN MD DR: CHEL/gomez JOB#: [id number] / [id number]
== END | disposition home or self-care (01) ==
LOC: PNCL 10:53
PROVIDERS: ATTEND Anesthesiology
DX: M79.18 Myalgia, other site (principal); M51.36 Other intervertebral disc degeneration, lumbar region; M96.1 Postlaminectomy syndrome, not elsewhere classified; M70.62 Trochanteric bursitis, left hip; Z88.5 Allergy status to narcotic agent; Z91.09 Other allergy status, other than to drugs and biological substances
CPT/HCPCS: 20553; J3490

== ENCOUNTER → 2018-12-28 | Outpatient (CLI) | payer MEDICARE, MEDICAID ==
[~2018-12-28] MED LIST changes: -BUPIVACAINE MPF 0.25% 10 ML VIAL. ONE
--- NOTE | 2018-12-29 05:29 | PAIN ---
DATE OF SERVICE: 12/28/2018 PROGRESS NOTE FOR PAIN CLINIC DIAGNOSES: Lumbar radiculopathy with post lumbar laminectomy syndrome, degenerative disk disease and myofascial pain. HISTORY OF PRESENT ILLNESS: The patient is a 58-year-old female who returns for followup status post medication management with both hydrocodone and Flexeril. The patient reports she was doing very well with this, has been on very stable regimen. I will be giving her hydrocodone 7.5 mg up to 4 times a day on average and 10 mg, just #40 tablets for a 2-month period. She has been using this for increased pain and when she is doing increased activity and has been on very good balance of the medication regimen without significant side effects. The patient reports the Flexeril does help with the muscular pain as well. With that, some trigger points were performed on her last visit, which she reports did help the pain significantly by about 75-80%, but increased her blood glucose to a significant level after the injections. The patient reports the pain returned to the base of neck and shoulders, more on the right than left, across the low back, into the right lower extremity to some degree as well. She rates at 10 on a scale of 10 at its worst, 7 on average, 5 at its least and is a 5 today. The patient reports it is aching, sharp, tight, tingling, burning, cramping, constant, becoming severe with activity, on and off in intensity, better with sleeping at night, lying down or sitting, worse with walking, standing, changing positions or to repetitive motions, especially with the upper extremities, with the neck and shoulders as well as the low back and right leg. The patient reports no new motor or sensory deficits, no new bowel or bladder incontinence or other complaints. PHYSICAL EXAMINATION: VITAL SIGNS: The patient's blood pressure is 149/94, pulse 99, respirations are 18, temperature is 98.1 degrees Fahrenheit. Height is 5 feet 7 inches. Weight is 167 pounds. GENERAL: The patient is awake, alert, oriented, appropriate, very pleasant demeanor. HEENT: Head shows normocephalic, atraumatic. Extraocular movements are intact and symmetrical. Oral cavity: Mucous membranes moist and pink. Dentition is intact. NECK: Shows anterior throat supple without palpable lymphadenopathy noted. Swallow reflex symmetrical. CHEST: Shows normal with inspection. Breath sounds clear to auscultation bilaterally. HEART: Shows S1, S2 clear. No murmurs auscultated. ABDOMEN: Soft, obese, nontender, nondistended. No palpable organomegaly is noted. No rebound or guarding demonstrated. BACK: The patient's back shows spine grossly in the midline. Normal appearing thoracic kyphosis and some flattening of lumbar lordotic curvature. Well-healed surgical scar. Cervical paraspinous muscle shows symmetrical on inspection, on palpation shows some moderate tenderness diffusely, but without radiation. The patient has good rotational motion of the cervical spine. Low back shows moderate tenderness with palpation and symmetrical paraspinous musculature on inspection without trigger points, without significant radiation. The patient does have some trigger point areas of myofascial pain in the trapezius bilaterally as well as the inferior cervical paraspinous musculature and thoracic paraspinous musculature as well, but again, much less than on previous exam and without radiation. EXTREMITIES: The patient's upper extremities show deep tendon reflexes at 2+ in the biceps and triceps tendons and 1+ in the patellar and tendo calcaneus tendons. Motor exam is strong with 5/5 low voltage electrician strength, bicep and tricep flexion. Lower extremities show 4/5, but equal and symmetrical dorsiflexion, extension, quadriceps and hamstring flexion. Peripheral pulses are 2+ radial, 1+ posterior tibia. No peripheral edema is noted bilaterally. Options were discussed with the patient. The patient's old chart was reviewed as her current medication regimen updated. Current review of systems updated today as well. We will refill the patient's hydrocodone as well as Flexeril with instructions, side effects to be aware of discussed with each medication. Again, the patient has been on very stable regimen, has had appropriate K-TRACS reporting as well as appropriate urinalysis to date. We will refill this for a 2-month period. The patient will follow up in approximately 2 months or sooner if necessary, was counseled as to activity level as well as side effects to be aware of and medication regimen. Also, have a UA today, urinalysis for a routine screening. KELY MORTENSEN MD DR: CHEL/gomez JOB#: [id number] / [id number]
== END | disposition home or self-care (01) ==
LOC: PNCL 11:16
PROVIDERS: ATTEND Anesthesiology
DX: M51.16 Intervertebral disc disorders with radiculopathy, lumbar region (principal); M96.1 Postlaminectomy syndrome, not elsewhere classified; M79.18 Myalgia, other site
CPT/HCPCS: G0463

== ENCOUNTER → 2019-04-20 | Outpatient (CLI) | payer MEDICARE, MEDICAID ==
[~2019-04-20] MED LIST changes: +BUPIVACAINE MPF 0.25% 10 ML VIAL. ONE
--- NOTE | 2019-04-20 21:27 | PAIN ---
DATE OF SERVICE: 04/20/2019 PROGRESS NOTE FOR PAIN CLINIC DIAGNOSES: 1. Myofascial pain. 2. Lumbar degenerative disk disease with post-lumbar laminectomy syndrome. 3. Left greater trochanteric bursitis. HISTORY OF PRESENT ILLNESS: The patient is a 58-year-old female who returns for followup status post trigger point injections as well as medication management with hydrocodone. The patient is doing very well with this and is on a very stable regimen, has had good results and is doing quite well with this so far. The patient does report she had the incident about a week ago when she was trimming some bushes in the yard and a wasp nest was exposed and she got multiple stings. She has been on steroids for that since that time and her blood sugar has been over 400 for about a week now. The patient reports the pain is still in the base of the neck, shoulders, upper back, especially reports a 10 on a scale of 10 at its worst in the past week, 8 on its average, is 5 at its least and is an 8 today. The patient reports it is aching, sharp, tight, shooting, tingling, burning, cramping, stabbing, constant, severe, unbearable at times in the base of the neck and shoulders, upper back, especially on the right side. The patient reports no loss of motor function. No new bowel or bladder incontinence or other complaints. This has been waking her from sleep at night in the neck and shoulders as well. PHYSICAL EXAMINATION: VITAL SIGNS: The patient's blood pressure 156/83, pulse 80, respirations 18, temperature 98.2 degrees Fahrenheit, height is 5 feet 7 inches and weight is 158 pounds. GENERAL: The patient is awake, alert, oriented, appropriate, very pleasant demeanor. HEENT: Head is normocephalic, atraumatic. Extraocular movements are intact and symmetrical. Oral cavity: Mucous membranes are moist and pink. Dentition is intact. NECK: Shows anterior throat supple without palpable lymphadenopathy noted. Swallow reflex is symmetrical. CHEST: Shows normal on inspection. Breath sounds are clear to auscultation bilaterally. HEART: Shows S1, S2 clear. ABDOMEN: Soft, nontender and nondistended. BACK: Shows spine grossly in the midline. Cervical lordotic curvature is maintained with some minor flattening, thoracic kyphotic curvature and lumbar lordotic curvature. The patient's cervical paraspinous muscle shows very firm, rope-like musculature throughout the upper, middle and lower distribution of paraspinous muscles into the superior medial trapezius on the left. Very firm, rope-like musculature consistent with trigger point areas of muscle with some radiation in the inferior aspect of the cervical paraspinous musculature on the right and the superior medial trapezius with radiation to the lateral shoulder on the right side with palpation. This is through into the rhomboid distribution as well as into the thoracic paraspinous musculature, again worse on the right than the left with very firm, rope-like muscles consistent with trigger point areas of musculature, but without radiation in this region. EXTREMITIES: The patient's upper extremities show deep tendon reflexes 2+ in the biceps and triceps tendons. Motor exam is strong with 5/5 armored car messenger strength, biceps, triceps flexion. Peripheral pulses are 2+ in radial distribution. No peripheral edema is noted bilaterally. Options were discussed with the patient. The patient's old chart was reviewed as her current medication regimen updated. Current review of systems updated today as well. We will proceed with trigger point injections of the identified musculature. Risks were discussed including but not limited to bleeding, infection, possibility of intravascular injection sequelae, spread of local anesthetic and numbness, pneumothorax, side effects of local anesthetic as well as poor results regarding pain control. The patient understands and wished to proceed. The patient will return to clinic in approximately 2 months for followup. She was counseled as to return appointment, activity level and side effects to be aware of. The patient has had appropriate K-TRACS reporting as well as appropriate urinalysis to date. We will refill her hydrocodone for a 2-month prescription, 7.5 mg up to 4 tablets daily as well as 10 mg, 40 total for a 2-month period for excessive pain above that on baseline. The patient understands and will follow up as scheduled. DIAGNOSES: Myofascial pain. PROCEDURE: Trigger point injections to bilateral cervical paraspinous musculature, bilateral trapezius musculature, bilateral thoracic paraspinous musculature under sterile prep and drape using local anesthetic. MEDICATION INJECTED: A total of 10 mL of 0.25% bupivacaine and negative aspiration at each injection site. CONDITION AT DISCHARGE: Stable. The patient tolerated the procedure well, had no complications. KELY MORTENSEN MD DR: Shyla JOB#: [id number] / [id number]
== END ==
LOC: PNCL 11:16
PROVIDERS: ATTEND Anesthesiology
DX: M79.18 Myalgia, other site (principal); M96.1 Postlaminectomy syndrome, not elsewhere classified; M51.36 Other intervertebral disc degeneration, lumbar region
CPT/HCPCS: 20553; J3490

== ENCOUNTER → 2019-07-16 | Outpatient (CLI) | payer MEDICARE, MEDICAID ==
[~2019-07-16] MED LIST changes: -BUPIVACAINE MPF 0.25% 10 ML VIAL. ONE
--- NOTE | 2019-07-16 19:33 | PAIN ---
DATE OF SERVICE: 07/16/2019 PROGRESS NOTE FOR PAIN CLINIC DIAGNOSES: 1. Myofascial pain. 2. Lumbar degenerative disk disease with lumbar post-laminectomy syndrome. 3. Left greater trochanteric bursitis. HISTORY OF PRESENT ILLNESS: The patient is a 59-year-old female who returns for followup status post medication management as well as trigger point injections. The patient did very well to trigger point injections after the last visit with still some decreased pain, but the patient reports she is still having some pain. She was ill for about a month, some sort of flu she believes, but has overcome of that now but the pain is still in the low back, mid back, upper back and shoulders. Describes as an aching, sharp pain, it is tight and shooting, burning, cramping, constant, severe, unbearable at times with activity, better with medications. Her medications she is tolerating very well without side effects, decrease her pain by about 70% to 75%. The patient reports it is a 10 on a scale of 10 at its worst over the past week, 9 on average, 6 at its least and is a 9 today. The patient reports no new motor or sensory deficits, no new bowel or bladder incontinence. Sleeping well at night, much better with sitting or lying down, worse with walking, standing, change in positions. She has been doing a lot of house work lately, preparing for winter and working on her property, which has increased the pain to some extent well, again significantly reduced with the medications without significant side effects. PHYSICAL EXAMINATION: VITAL SIGNS: The patient's blood pressure 136/85, pulse 79, respirations 18, temperature 97.9 degrees Fahrenheit, height is 5 feet 9 inches, weight is 157 pounds. GENERAL: The patient is awake, alert, oriented, appropriate, very pleasant demeanor. HEENT: Shows normocephalic, atraumatic. Extraocular movements are intact and symmetrical. Oral cavity: Mucous membranes moist and pink. Dentition is intact. NECK: Shows anterior throat supple without palpable lymphadenopathy noted. Swallow reflex is symmetrical. CHEST: Shows normal on inspection. Breath sounds clear to auscultation bilaterally. HEART: Shows S1, S2 clear. No murmurs auscultated. ABDOMEN: Soft, nontender, nondistended. No palpable organomegaly is noted. No rebound or guarding demonstrated. BACK: Shows spine grossly in the midline. Moderate tenderness with palpation. The cervical paraspinous muscle shows the trapezius musculature bilaterally, thoracic paraspinous muscles as well as the lumbar paraspinous muscles, but only diffusely without specific trigger points on exam today. EXTREMITIES: The patient's lower extremities show deep tendon reflexes at 1+ in the patellar and tendo calcaneus tendons. Motor exam is strong with dorsiflexion, extension, quadriceps and hamstring flexion rated at 5/5 and equal. Peripheral pulses are 1+ posterior tibial and no peripheral edema is noted bilaterally. Options were discussed with the patient. The patient's old chart was reviewed as her current medication regimen updated. Current review of systems updated today as well. We will refill the patient's hydrocodone at both 7.5 mg for 2-month period and 10 mg of 40 tablets for the 2-month period as well as Flexeril. The patient was given instruction as well as side effects to be aware of with all the medications. The patient has had appropriate K-TRACS reporting as well as appropriate urinalysis to date. We will refill for a 60 day period. The patient will return to the clinic in approximately 2 months or sooner if necessary. KELY MORTENSEN MD DR: CHEL/gomez JOB#: [id number] / [id number]
== END | disposition home or self-care (01) ==
LOC: PNCL 10:05
PROVIDERS: ATTEND Anesthesiology
DX: M51.36 Other intervertebral disc degeneration, lumbar region (principal); M70.62 Trochanteric bursitis, left hip; M96.1 Postlaminectomy syndrome, not elsewhere classified; M54.5 Low back pain; M79.18 Myalgia, other site
CPT/HCPCS: G0463

== ENCOUNTER → 2019-09-17 | Outpatient (CLI) | payer MEDICARE, MEDICAID ==
[~2019-09-17] MED LIST changes: +BUPIVACAINE MPF 0.25% 10 ML VIAL. ONE; +INSU100I32 SQ
--- NOTE | 2019-09-17 14:35 | PAIN ---
DATE OF SERVICE: 09/17/2019 PROGRESS NOTE FOR PAIN CLINIC DIAGNOSES: 1. Myofascial pain. 2. Lumbar post-laminectomy syndrome with lumbar degenerative disk disease. 3. Left greater trochanteric bursitis. HISTORY OF PRESENT ILLNESS: The patient is a 59-year-old female who returns for followup status post trigger point injections as well as medication management with both oxycodone and Flexeril. The patient reports she has been doing fairly well with very stable regimen with her narcotic medications and her Flexeril but still has some significant pain in the base of the neck and shoulders, more on the right than the left, upper back, mid back and low back on the right side. The patient reports it is a 10 on a scale of 10 at its worst over the past week, 9 on average, 7 at its least and is a 9 today. The patient reports it is tingling, burning, stabbing, aching type, shooting down the back and across the shoulders. Also some pain in the right leg anteriorly. The patient reports the pain in the neck is radiating, constant, becoming more severe, more unbearable, worse with walking, standing, changing positions, weight lifting or reaching up above her head with her hands. 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 The patient reports no new motor or sensory deficits. Initially, she was doing much better after the last set of injections, returning to work better, doing work activities better, walking better, household activities with much greater ease and comfort. The patient reports no significant side effects with the medications, reports about 70-75% improvement overall in her arm, has been on very stable regimen of medications at this time. PHYSICAL EXAMINATION: VITAL SIGNS: The patient's blood pressure is 134/66, pulse 79, respirations are 16, temperature is 97.4 degrees Fahrenheit, weight is 153 pounds. GENERAL: The patient is awake, alert, oriented, appropriate, very pleasant demeanor. HEENT: Head shows normocephalic, atraumatic. Extraocular movements are intact and symmetrical. Oral cavity shows mucous membranes are moist and pink. Dentition is intact. NECK: Shows anterior throat supple without palpable lymphadenopathy noted. Swallow reflex symmetrical. CHEST: Shows normal on inspection. Breath sounds are clear to auscultation bilaterally. HEART: Shows S1, S2 clear. No murmurs auscultated. ABDOMEN: Soft, nontender, nondistended. No palpable organomegaly is noted. No rebound or guarding demonstrated. BACK: Shows spine grossly in the midline. Normal-appearing thoracic kyphosis and lumbar lordotic curvature. Lumbar paraspinous muscle shows symmetrical on inspection, on palpation shows some moderate tenderness diffusely bilaterally, going diffusely without significant radiation. The patient's upper extremities show deep tendon reflexes 2+ in the biceps and triceps tendons. Motor exam is strong with marker hand strength rated at 5/5 as is biceps and triceps flexion. Lower extremities show deep tendon reflexes 2+ in the patellar, 1+ tendo-calcaneus tendons. Motor exam is strong with 5/5 dorsiflexion, extension, quadriceps and hamstring flexion. Peripheral pulses are 1+ in posterior tibia. No peripheral edema is noted bilaterally. The patient's upper back, neck and shoulder shows significant tenderness with palpation of cervical paraspinous musculature, specifically very firm rope-like musculature, very consistent with trigger point areas of musculature bilaterally in the superior, middle and lower distribution of the cervical paraspinous muscles as well as the superior, medial and lateral trapezius, more tender on the right than the left but with very firm rope-like musculature bilaterally consistent with trigger point areas of muscle, tender with palpation but again without significant radiation on palpation. The patient shows significant tenderness and rope-like musculature as well in the superior medial trapezius and the rhomboid distribution, upper thoracic paraspinous musculature and middle thoracic on the right only and the lower thoracic distribution on the right only as well as the upper distribution of the lumbar paraspinous musculature, again more significantly on the right with very firm rope-like musculature consistent with trigger point areas of muscle in this region as well again without specific radiation with palpation. PLAN: Options were discussed with the patient. The patient's old chart was reviewed as her current medication regimen updated. Current review of systems updated today as well. We will proceed with trigger point injections of the aforementioned musculature. Risks were again discussed including, but not limited to bleeding, infection, possibility of intravascular injection sequelae, spread of local anesthetic and numbness, side effects of steroid medication, pneumothorax and poor results regarding pain control. The patient understands and wishes to proceed. We will hold steroid component of the trigger point injection today as the patient's diabetes has been difficult to manage after steroid injections in the past. The patient understands this as well. Also, refilled the patient's medication, hydrocodone 7.5 mg and 10 mg of 40 tablets only for the next 2 months if the 10 mg size, 120 each month for the 7.5 mg and also Flexeril 3 times daily 10 mg as well. The patient was given instruction as well as side effects to be aware of each of the medications. We will follow up in approximately 2 months or sooner if necessary. The patient has had appropriate K-TRACS reporting as well as appropriate urinalysis to date. We will follow up as scheduled. KELY MORTENSEN MD DR: CHEL/gomez JOB#: [id number] / [id number]
--- NOTE | 2019-09-18 00:12 | PAIN ---
DATE OF SERVICE: 09/17/2019 PROCEDURE NOTE DIAGNOSIS: Myofascial pain. PROCEDURE: Trigger point injections, bilateral cervical paraspinous musculature, bilateral trapezius musculature, bilateral thoracic paraspinous musculature and right-sided lumbar paraspinous musculature under sterile prep and drape using local anesthetic. MEDICATION INJECTED: A total of 12 mL of 0.25% bupivacaine after negative aspiration at each injection site. CONDITION AT DISCHARGE: Stable. The patient tolerated the procedure well, had no complications. KELY MORTENSEN MD DR: CHEL/nts JOB#: [id number] / [id number]
== END ==
LOC: PNCL 11:24
PROVIDERS: ATTEND Anesthesiology
DX: M79.18 Myalgia, other site (principal); M96.1 Postlaminectomy syndrome, not elsewhere classified; M51.36 Other intervertebral disc degeneration, lumbar region
CPT/HCPCS: 20553; J3490

== ENCOUNTER → 2019-11-12 | Outpatient (CLI) | payer MEDICARE, MEDICAID ==
[~2019-11-12] MED LIST changes: +INSU100C4 SQ
--- NOTE | 2019-11-12 13:23 | PAIN ---
DATE OF SERVICE: 11/12/2019 PROGRESS NOTE FOR PAIN CLINIC DIAGNOSES: 1. Myofascial pain. 2. Lumbar degenerative disk disease with lumbar post-laminectomy syndrome. 3. Left greater trochanteric bursitis. HISTORY OF PRESENT ILLNESS: The patient is a 59-year-old female who returns for followup status post medication management with both hydrocodone and Flexeril as well as trigger point injections. The patient did very well with trigger point injections and reports her neck is doing much better, substantially better about 80%, but still significant pain in the upper back, mid back, and in the low back to some extent, worse on the right than the left, but present bilaterally. The patient reports it is a 10 on a scale of 10 at its worst, 9 on average, 9 at its least, and is a 10 today. The patient reports it is aching, sharp, tight, shooting, burning, stabbing, constant, becoming more severe and unbearable, but on and off in intensity, worse with activity. The patient has done no specific actions or activities that she is associating with the increase in pain and is a little puzzled by this, but still the pain is significant for keeping her from sleep at night, awaking her from sleep at least once or twice. The patient reports no new motor or sensory deficits, no new changes. PHYSICAL EXAMINATION: VITAL SIGNS: The patient's blood pressure is 141/85, pulse 93, respirations are 16, temperature 97.9 degrees Fahrenheit. Weight is 154 pounds. GENERAL: The patient is awake, alert, oriented, appropriate, very pleasant demeanor. HEENT: Shows normocephalic, atraumatic. Extraocular movements are intact and symmetrical. Oral cavity: Mucous membranes moist and pink. Dentition is intact. NECK: Shows anterior throat supple without palpable lymphadenopathy noted. Swallow reflex symmetrical. CHEST: Shows normal on inspection. Breath sounds are clear bilaterally. HEART: Shows S1, S2 clear. No murmurs auscultated. ABDOMEN: Soft, nontender, nondistended. BACK: Shows spine grossly in the midline. Normal-appearing thoracic kyphosis and lumbar lordotic curvature. Thoracic paraspinous muscle shows symmetrical on inspection, with palpation shows some very firm rope-like musculature throughout the upper and middle distribution of the paraspinous muscles, very firm rope-like consistent with trigger point areas of musculature, slightly worse on the right than the left, but present bilaterally with very tender but without specific radiation. This is true into the suprascapular region on the right, but not the left, also the trapezius musculature with very firm rope-like musculature bilaterally, more on the right than the left, again more tender, but with very firm rope-like musculature consistent with trigger point areas of muscle and also in the inferior cervical paraspinous musculature on the right side, very firm rope-like musculature consistent with trigger point areas as well, very tender but without specific radiation. The patient has full rotational motion of the cervical spine, somewhat guarded with lateral rotation as well as extension and forward flexion with pulling sensation with flexion, but no radiation of pain. EXTREMITIES: The patient's upper extremities show deep tendon reflexes 2+ in the biceps, triceps tendons. Motor exam is strong with bait man strength rated at 5/5 as is bicep and tricep flexion. Peripheral pulses are 2+ radial. No peripheral edema bilaterally. Options were discussed with the patient. The patient's old chart was reviewed as her current medication regimen updated. Current review of systems updated today as well. We will perform trigger point injections on the identified musculature. Risks were again discussed including, but not limited to bleeding, infection, possibility of intravascular injection sequelae, pneumothorax, side effects of steroid medication, and poor results regarding pain control. The patient understands and wished to proceed. The patient will return to the clinic in approximately 2 months as scheduled or sooner if necessary. The patient was given refill prescription for 60-day supply of hydrocodone as well as Flexeril with instructions, side effects to be aware of each of the medications. The patient had appropriate K-TRACS reporting as well as appropriate urinalysis to date and will follow up in 2 months or sooner as necessary. DIAGNOSIS: Myofascial pain. PROCEDURE: Trigger point injections bilateral cervical paraspinous musculature, bilateral trapezius musculature, bilateral thoracic paraspinous musculature under sterile prep and drape using local anesthetic. MEDICATION INJECTED: A total of 12 mL of 0.25% bupivacaine after negative aspiration at each injection site. CONDITION AT DISCHARGE: Stable. The patient tolerated the procedure well and had no complications. KELY MORTENSEN MD DR: CHEL/gomez JOB#: [id number] / [id number]
== END ==
LOC: PNCL 10:43
PROVIDERS: ATTEND Anesthesiology
DX: M79.18 Myalgia, other site (principal); M51.36 Other intervertebral disc degeneration, lumbar region; M96.1 Postlaminectomy syndrome, not elsewhere classified; M70.62 Trochanteric bursitis, left hip
CPT/HCPCS: 20553; J3490

== ENCOUNTER → 2020-02-14 | Outpatient (CLI) | payer MEDICARE, MEDICAID ==
--- NOTE | 2020-02-14 13:34 | PAIN ---
DATE OF SERVICE: 02/14/2020 PROGRESS NOTE FOR PAIN CLINIC DIAGNOSES: 1. Myofascial pain. 2. Lumbar degenerative disk disease with lumbar post-laminectomy syndrome. 3. Left greater trochanteric bursitis. HISTORY OF PRESENT ILLNESS: The patient is a 59-year-old female who returns for followup status post trigger point injections, last seen on 11/12/2019. The patient also with medication management with hydrocodone. The patient reports she is doing very well with each of these and she has been much more active, however, recently with tending to her garden and some yard work as she has a considerable amount of property that she takes care of at home. The patient reports some increase in pain in the base of the neck, shoulders, upper back, mid back as well as the low back, some on the legs too, but the patient reports the pain is a 9 on a scale of 10 at its worst over the past week, 6 on average, 5 at its least and is a 6 today. The patient reports it is aching and tight, shooting, tingling, burning, cramping at times, becoming more constant and severe with activity in the mid low back, but the main complaint is the neck and shoulders causing some headaches, slightly worse on the right than the left, but present bilaterally with tightness and increasing pain and cramping as well. The patient reports it awakens her from sleep occasionally, but usually much better with lying down. She does use heat and cold ice packs alternating on the shoulders, neck and upper back, which do help as well. The patient reports no new motor or sensory deficits, no new changes. PHYSICAL EXAMINATION: VITAL SIGNS: The patient's blood pressure 154/57, pulse 96, respirations 18, temperature 98.3 degrees Fahrenheit, height is 5 feet 9 inches, weight is 156 pounds. GENERAL: The patient is awake, alert, oriented, appropriate, very pleasant demeanor. HEENT: Shows normocephalic, atraumatic. Extraocular movements are intact and symmetrical. Oral cavity: Mucous membranes moist and pink. Dentition is intact. NECK: Shows anterior throat supple without palpable lymphadenopathy noted. Swallow reflex symmetrical. CHEST: Shows normal on inspection. Breath sounds are clear to auscultation bilaterally. HEART: Shows S1, S2 clear. No murmurs auscultated. ABDOMEN: Soft, nontender, nondistended. BACK: Shows spine grossly in the midline. With palpation of the paraspinous muscle shows symmetrical on inspection throughout the cervical, thoracic and lumbar lordotic curvatures, with palpation shows some very significant tenderness in the cervical paraspinous muscles and superior medial and lower very firm rope-like musculature consistent with trigger point areas. This is true into the trapezius, more on the right than the left and also in the thoracic paraspinous musculature, more on the right than left, very firm rope-like musculature, very tender to palpation bilaterally without specific radiation. EXTREMITIES: The patient's upper extremities show deep tendon reflexes 2+ in the biceps and triceps tendons. Motor exam is strong with manager of manufacturing strength rated at 5/5 and equal bilaterally. Peripheral pulses are 2+. No peripheral edema is noted. Options were discussed with the patient. The patient's old chart was reviewed as her current medication regimen updated. Current review of systems updated today as well. We will proceed with trigger point injections. Risks were again discussed including, but not limited to bleeding, infection, possibility of spread of local anesthetic and numbness, pneumothorax, side effects of steroid medication as well as poor results regarding pain control. The patient understands and wished to proceed. The patient will return to clinic in approximately 4 weeks for followup. She was counseled as to return appointment, activity level and side effects to be aware of. The patient was given refill prescription for hydrocodone 7.5 mg and 10 mg sparingly with instructions, side effects to be aware of. Again, the patient has been on very stable regimen with the medications and will be given a 2-month prescription refill and will follow up in approximately 1 month as scheduled or sooner as necessary. KELY MORTENSEN MD DR: CHEL/gomez JOB#: [id number] / [id number]
--- NOTE | 2020-02-28 12:36 | PAIN ---
DATE OF SERVICE: 02/14/2020 ADDENDUM Trigger point injection procedure. DIAGNOSIS: Myofascial pain. PROCEDURE: Trigger point injections under sterile prep and drape using local anesthetic in the bilateral cervical paraspinous musculature, bilateral trapezius musculature and bilateral thoracic paraspinous musculature. MEDICATION INJECTED: Total of 12 mL of 0.25% bupivacaine. No Depo-Medrol after negative injection at each of the trigger point sites. CONDITION AT DISCHARGE: Stable. The patient tolerated the procedure well, had no complications. KELY MORTENSEN MD DR: CHEL/gomez JOB#: [id number] / [id number]
== END | disposition home or self-care (01) ==
LOC: PNCL 11:43
PROVIDERS: ATTEND Anesthesiology
DX: M79.18 Myalgia, other site (principal); M96.1 Postlaminectomy syndrome, not elsewhere classified; M51.36 Other intervertebral disc degeneration, lumbar region; M71.012 Abscess of bursa, left shoulder; M51.26 Other intervertebral disc displacement, lumbar region; Z88.6 Allergy status to analgesic agent; Z91.048 Other nonmedicinal substance allergy status; Z98.890 Other specified postprocedural states
CPT/HCPCS: 20553; J3490

== ENCOUNTER → 2020-04-14 | Outpatient (CLI) | payer MEDICARE, MEDICAID ==
[~2020-04-14] MED LIST changes: -BUPIVACAINE MPF 0.25% 10 ML VIAL. ONE
--- NOTE | 2020-04-14 10:50 | PAIN ---
DATE OF SERVICE: 04/14/2020 PROGRESS NOTE FOR PAIN CLINIC DIAGNOSES: 1. Myofascial pain. 2. Lumbar degenerative disk disease with lumbar post-laminectomy syndrome. 3. Left greater trochanteric bursitis. HISTORY OF PRESENT ILLNESS: The patient is a 59-year-old female who returns for followup status post trigger point injections, bilateral cervical paraspinous musculature, trapezius and thoracic paraspinous musculature 02/13. The patient did very well with these, reports about 50% improvement overall. Pain is returning in the neck and the shoulders, upper back, mid back and also low back and left lower extremity. The patient has had a recent eye abscess, which was recently drained. She has been on antibiotics now for few days. We will hold off on any injections until the infection is cleared. The patient has also medical management with hydrocodone, both 7.5 mg and 10 mg for intermittent use. The patient reports she is doing very well with these with good results with medication itself about 75% improvement without side effects. The patient reports her pain recently is a 10 on a scale of 10 at its worst over the past week, 9 on average, 7 at its least and is 7 today. The patient reports she has been increasing her activity. She has been at her home, doing some jose roberto work and siding work and also redoing a gravel driveway, which has increased her pain significantly in the mid and low back, especially standing on ladders and the work with the driveway has exacerbated the pain, but again the patient reports that it has been fairly well controlled with the medication. The patient describes her pain as aching and tight, and shooting in the low back and neck, shoulders are tingling and burning with some cramping in the low back as well as in the shoulders bilaterally. The patient reports no new motor or sensory deficits, no bowel or bladder incontinence or other complaints. Reports she is doing fairly well with sleeping recently, but with increased pain last week with her home projects it was difficult to sleep. PHYSICAL EXAMINATION: VITAL SIGNS: The patient's blood pressure 148/87, pulse 85, respirations 18, temperature 98.5 degrees Fahrenheit, height is 5 feet 9 inches, weight is 155 pounds. GENERAL: The patient is awake, alert, oriented, appropriate, very pleasant demeanor. HEENT: Shows normocephalic, atraumatic. Extraocular movements are intact and symmetrical. Oral cavity shows mucous membranes moist and pink. The patient's left eye does show some puffy and erythematous change in the lower eyelid where the abscess was drained, but not fluctuant and without Discharge today. NECK: Shows anterior throat supple without palpable lymphadenopathy noted. Swallow reflex symmetrical. Neck shows full rotational motion of cervical spine, both laterally as well as extension and flexion without significant difficulty. CHEST: Shows normal on inspection. Breath sounds are clear bilaterally. No rales, rhonchi or wheezes auscultated. HEART: Shows S1, S2 clear. ABDOMEN: Soft, nontender, nondistended. No palpable organomegaly is noted. No rebound or guarding demonstrated. BACK: Shows spine grossly in the midline, normal-appearing cervical lordotic curvature with mildly increased thoracic kyphosis and minor flattening of lumbar lordotic curvature with well-healed surgical scarring noted in the lumbar distribution. Paraspinous muscle shows symmetrical on inspection with palpation, the cervical distribution shows very firm rope-like musculature in the inferior cervical paraspinous muscles as well as the trapezius, slightly more on the right than the left, but present bilaterally with firm rope-like musculature consistent with trigger point areas of musculature, but without radiation. This is true into the thoracic paraspinous musculature, again more on the right than the left, but present bilaterally without radiation. Lumbar paraspinous muscle shows firm throughout the upper, middle and lower distribution of paraspinous muscles without specific trigger point areas, but very firm musculature bilaterally without radiation. The patient has good rotational motion of lumbar spine, both laterally as well as extension and flexion with only minor pain reported with flexion. EXTREMITIES: The patient's upper extremities show deep tendon reflexes 2+ in the biceps and triceps tendons. Lower extremities are 1+ patellar and tendo calcaneus tendons. Motor exam is strong with heel molder strength 5/5 bilaterally as is bicep and tricep flexion. Lower extremities show 5/5 with symmetrical dorsiflexion and extension. Peripheral pulses are 2+ radial, 1+ posterior tibia. No peripheral edema in the upper or lower extremities noted. Options were discussed with the patient. The patient's old chart was reviewed as her current medication regimen updated. Current review of systems updated today as well. We will hold on further trigger point injections, although she does have fairly symptomatic trigger point areas as noted until her antibiotics are completed for her abscess on her eyelid. We will refill the patient's medication, hydrocodone 7.5 mg and 10 mg total of 40 tablets of 10 mg only to be used over the next 2 months. The patient has had appropriate K-TRACS reporting as well as appropriate urinalysis to date. We will make this a 2-month prescription as noted with instructions, side effects to be aware of discussed with each of the medications. The patient will follow up in approximately 2 months as scheduled or sooner if necessary. KELY MORTENSEN MD DR: CHEL/gomez JOB#: [id number] / [id number]
== END | disposition home or self-care (01) ==
LOC: PNCL 09:19
PROVIDERS: ATTEND Anesthesiology
DX: M51.36 Other intervertebral disc degeneration, lumbar region (principal); M96.1 Postlaminectomy syndrome, not elsewhere classified; M70.62 Trochanteric bursitis, left hip; M79.18 Myalgia, other site; I10 Essential (primary) hypertension; Z79.899 Other long term (current) drug therapy
CPT/HCPCS: G0463

== ENCOUNTER → 2020-06-09 | Outpatient (CLI) | payer MEDICARE, MEDICAID ==
[~2020-06-09] MED LIST changes: +BUPIVACAINE MPF 0.25% 10 ML VIAL. ONE
--- NOTE | 2020-06-09 10:36 | PDOC ---
Progress Note - Pain Clinic Date of Service: DOS: DATE: 06/09/20 TIME: 10:25 Diagnosis: Dx: Myofascial pain Lumbar degenerative disc disease with post lumbar laminectomy syndrome Left greater trochanteric bursitis History or Present Illness: HPI: 59-year-old female returns follow-up status post medication management with hydrocodone as well as trigger point injections doing quite well with these p atient reports the last injections February 14, 2020 did very well afterwards with about 75 to 80% improvement overall. Reports pain is returning down the base the neck upper neck on the left base the neck on the right upper shoulders bilaterally in the upper back mid midthoracic and periscapular regions. Patient reports her pain is a 9 on scale 10 is worse of the past week 6 on average/and is a 4 today patient which is aching sharp tight tingling burning stabbing radiating becoming constant severe with activity. Patient reports he is been doing some increased activity at home working on her remodeling project with her house using seems to have exacerbated the pain to some extent. Patient reports that the hydrocodone does control her pain to a moderate extent and has no specific side effects. Patient reports no new motor or sensory deficits no new changes. Physical Exam: VS: Blood pressure is 149/85 pulse 79 respiration 16 temperature 98.3 F weight is 155 pounds PE: PHYSICAL EXAMINATION: GENERAL: The patient is awake, alert, oriented, appropriate, very pleasant demeanor HEENT: Shows normocephalic, atraumatic. Extraocular movements are intact and symmetrical. Oral cavity: Mucous membranes moist and pink. NECK: Shows anterior throat supple without palpable lymphadenopathy noted. Swallow reflex symmetrical. CHEST: Shows normal on inspection. Breath sounds are clear bilaterally, no rales rhonchi or wheezes auscultated. HEART: Shows S1, S2 clear. No murmurs auscultated. ABDOMEN: Soft, nontender, nondistended. No palpable organomegaly is noted. No rebound or guarding demonstrated. BACK: Shows spine grossly in the midline. Normal-appearing cervical lordotic curvature, cervical musculature shows symmetrical inspection on palpation some moderate tenderness with very firm ropelike musculature greater on the left than the right in the superior middle and lower distribution the cervical paraspinous musculature but without specific radiation. Patient does show good rotation motion cervical spine both laterally as well as full extension full forward flexion with minor pain with full flexion only. Trapezius musculature shows very firm ropelike musculature consistent with trigger point areas as well more on the right than the left but very firm very tender but without radiation. Patient's upper back shows very firm ropelike musculature in the thoracic paraspinous musculature and rhomboid musculature bilaterally again worse on the right than the left but without radiation. There is slightly increased thoracic kyphosis, some minor flattening of the lumbar lordotic curvature. Lumbar parasp inous muscles show symmetrical on inspection, on palpation shows some moderate tenderness diffusely throughout the upper, middle and lower distribution of the paraspinous muscles bilaterally without radiation of pain. The patient has good rotational motion of the lumbar spine, both laterally as well as extension and flexion without significant difficulty. No tenderness over the spinous processes, sacrum or sacroiliac regions. EXTREMITIES: Lower extremities show deep tendon reflexes 1+ in the patellar and tendo calcaneus tendons. Motor exam is 5 on a scale of 5 with right dorsiflexion, extension, quadriceps and hamstring flexion and 5/5 on the left. Peripheral pulses are 1 posterior tibial. No peripheral edema is noted bilaterally. Lower extremities are warm and dry to touch, equal in color and appearance. Upper extremities show deep tendon reflexes 2+ in the biceps triceps tendons motor exam strong with refractory technician strength rated 5 out of 5 as is bicep and tricep flexion bilaterally. Radial pulses are 2+ no peripheral edema in the upper extremities as well. SKIN: Shows warm and dry, good turgor. No edema. No sores, rashes or bruising throughout. Procedure: Procedure: Options were discussed with the patient. Patient will chart reviews her current medication regimen updated current review of systems updated today as well. We will proceed with trigger point injections of the identified musculature risks are discussed including but not limited to bleeding infection possibility of intravascular injection sequelae spread of local anesthetic and numbness pneumothorax side effects of local anesthetic and poor results regarding pain control. Patient understands wished to proceed. Return to clinic in approximately 4 weeks or sooner as necessary. Patient will be given refill prescription for hydrocodone and Flexeril, patient has had appropriate K tracts reporting, as well as appropriate urinalyses to date, and we will refill this for 2-month period. Patient given instructions will side effects be aware of each of the medications. Medication Injected: Med Injected: Under sterile prep and drape patient's cervical paraspinous muscular trapezius musculature and rhomboid and thoracic paraspinous posture was identified sterilely prepped and trigger points identified 1 to time and injected using a 25-gauge needle with 1 cc of 0.25% Vivacaine at each injection site for a total of 12 cc of 0.25% bupivacaine after negative aspiration each injection site. Patient tolerated the procedure well had no complications. Condition at Discharge: Condition at Discharge: Patient discharged stable patient on the procedure well had no complications. KELY MORTENSEN MD Jun 09, 2020 10:36
== END | disposition home or self-care (01) ==
LOC: PNCL 09:23
PROVIDERS: ATTEND Anesthesiology
DX: M70.62 Trochanteric bursitis, left hip (principal); M51.36 Other intervertebral disc degeneration, lumbar region; M79.18 Myalgia, other site; I10 Essential (primary) hypertension; E11.9 Type 2 diabetes mellitus without complications; Z79.84 Long term (current) use of oral hypoglycemic drugs; Z88.5 Allergy status to narcotic agent; Z88.8 Allergy status to other drugs, medicaments and biological substances; Z79.899 Other long term (current) drug therapy
CPT/HCPCS: 20553; J3490

== ENCOUNTER → 2020-08-17 | Outpatient (CLI) | payer MEDICARE, MEDICAID ==
--- NOTE | 2020-08-17 11:52 | PDOC ---
Progress Note - Pain Clinic Date of Service: DOS: DATE: 08/17/20 TIME: 11:46 Diagnosis: Dx: Myofascial pain Lumbar degenerative disc disease with lumbar postlaminectomy syndrome Left greater trochanteric bursitis History or Present Illness: HPI: 60-year-old female returns follow-up status post trigger point injections most recently on June 09, 2020. Patient which did very well with about a 75% improvement in the neck and shoulder upper back mid back and low back pain now the pain returning significantly in the upper shoulder on the right into the right upper extremity with radiation of the right arm and hand with numbness and tingling in the right hand as well as the base the shoulder neck specifically. Patient reports no new injury or accidents but has been very active with activities at home and remodeling her house still and is overworking her right arm to some extent. Patient ports the pain is aching and sharp tight tingling burning cramping constant and severe sometimes unbearable. Patient reports awaken her from sleep at least every 3 hours at night rates her pain as a 9 on scale 10 is worse over the past week 8 on average 8 its least is an 8 today. Patient reports no loss of motor function no new bowel or bladder incontinence or other complaints. Physical Exam: VS: Blood pressure is 160/84 pulse 79 respirations 18 temperature 90.5 F height 5 feet 9 inches weight 158 pounds PE: PHYSICAL EXAMINATION: GENERAL: The patient is awake, alert, oriented, appropriate, very pleasant demeanor HEENT: Shows normocephalic, atraumatic. Extraocular movements are intact and symmetrical. Oral cavity: Mucous membranes moist and pink. Dentition is intact. NECK: Shows anterior throat supple without palpable lymphadenopathy noted. Swallow reflex symmetrical. CHEST: Shows normal on inspection. Breath sounds are clear bilaterally. HEART: Shows S1, S2 clear. No murmurs auscultated. ABDOMEN: Soft, nontender, nondistended. No palpable organomegaly is noted. No rebound or guarding demonstrated. BACK: Shows spine grossly in the midline. Normal-appearing cervical lordotic curvature. Cervical paraspinous but shows symmetrical inspection on palpation is a very firm ropelike musculature more on the right than the left and present bilaterally in the middle and lower distribution the paraspinous muscles consistent with trigger point areas of musculature very firm very tender but without specific radiation. Patient shows good rotation motion cervical spine both laterally as well as full extension full forward flexion without significant difficulty. There is slightly increased thoracic kyphosis, some minor flattening of the lumbar lordotic curvature. Thoracic paraspinous muscles show symmetrical with inspection as well but with palpation some very firm ropelike musculature in the superior and middle aspect of the thoracic paraspinous musculature including the rhomboid musculature more on the right than the left very firm ropelike musculature consistent with trigger point areas of muscle very firm very tender without radiation on palpation bilaterally. Lumbar paraspinous muscles show symmetrical on inspection, on palpation shows right sided tenderness with firm ropelike musculature in the superior aspect of the lumbar paraspinous posture but not on the left. The patient has good rotational motion of the lumbar spine, both laterally as well as extension and f lexion without significant difficulty. No tenderness over the spinous processes, sacrum or sacroiliac regions. EXTREMITIES: Upper extremities show deep tendon reflexes 2+ in the biceps and tricep tendons. Motor exam is 5 on a scale of 5 with right library information technician strength, bicep and tricep flexion and 5/5 on the left. Peripheral pulses are 2+ radial. No peripheral edema is noted bilaterally. Upper extremities are warm and dry to touch, equal in color and appearance. SKIN: Shows warm and dry, good turgor. No edema. No sores, rashes or bruising throughout. Procedure: Procedure: Options were discussed with the patient. Patient chart was reviewed as her current medication regimen updated current review of systems updated today as we ll. We will proceed with trigger point injections of the identified musculature risks are discussed including but not limited to bleeding infection possibility of intravascular injection sequelae spread of local anesthetic numbness pneumothorax, and portal scarring pain control. Patient understands wished to proceed. Patient has been managed well with hydrocodone 7.5 mg and 10 mg intermittently and has had appropriate K tract report as well as appropriate urinalyses to date. We will renew patient's narcotic contract today and refill patient's prescription for a 60-day prescription. Patient will return to clinic in approximately 4 weeks for follow-up, was counseled as to return appointment activity level and medication regimen with side effects to be aware of. Medication Injected: Med Injected: Under sterile prep and drape patient's cervical musculature trapezius and thoracic paraspinous rhomboid muscular and superior lumbar muscular was sterilely prepped and draped in the usual fashion trigger points were identified and injected with negative aspiration each injection site for a total of 12 cc of 0.25% bupivacaine 1 cc per 12 trigger points. Patient tolerated procedure well and had no complications. Condition at Discharge: Condition at Discharge: Condition at discharge is stable, patient tolerated procedure well and had no complications. KELY MORTENSEN MD Aug 17, 2020 11:52
== END | disposition home or self-care (01) ==
LOC: PNCL 10:54
PROVIDERS: ATTEND Anesthesiology
DX: M51.36 Other intervertebral disc degeneration, lumbar region (principal); M70.62 Trochanteric bursitis, left hip; M79.18 Myalgia, other site; M96.1 Postlaminectomy syndrome, not elsewhere classified; Z79.899 Other long term (current) drug therapy; Z79.4 Long term (current) use of insulin; Z88.5 Allergy status to narcotic agent; Z88.8 Allergy status to other drugs, medicaments and biological substances
CPT/HCPCS: 20553; J3490

== ENCOUNTER → 2020-11-03 | Outpatient (CLI) | payer MEDICARE, MEDICAID ==
[~2020-11-03] MED LIST changes: +BUPIVACAINE MPF 0.25% 30 ML VIAL. ONE; +GEMF600T20 PO; -GEMF600T8 PO; +TIOT18CA IH
--- NOTE | 2020-11-03 12:12 | PDOC4 ---
PROCEDURE Procedure Patient was consented for trigger point injections. Risk were discussed inc luding but not limited to bleeding infection possibility of intravascular injection sequelae spread to local acetic numbness pneumothorax and poor results regarding pain control. Patient understands wished to proceed. Under sterile prep and drape patient in sitting position trigger points were identified in the bilateral cervical paraspinous posterior bilateral trapezius musculature bilateral thoracic paraspinous musculature and left gluteus musculature using sterile prep and 25-gauge needle each trigger point area was identified and injected after negative aspiration 1 cc 0.25% bupivacaine for a total of 12 cc of 0.25% bupivacaine. Patient tolerated procedure well and had no complications. KELY MORTENSEN MD Nov 03, 2020 12:12
--- NOTE | 2020-11-03 12:12 | PDOC ---
Progress Note - Pain Clinic Date of Service: DOS: DATE: 11/03/20 TIME: 12:06 Diagnosis: Dx: Myofascial pain Lumbar degenerative disc disease lumbar postlaminectomy syndrome Left greater trochanteric bursitis History or Present Illness: HPI: 60-year-old female returns follow-up status post trigger point ejections was medication management with hydrocodone. Patient reports doing well with hydrocodone with about a 75% improvement and no side effects but has had increased pain in the neck and shoulders upper back mid back especially the left low back hip and gluteus. Patient reports he been increasing activity at home doing some work construction work in her house and has increased the activity level with some increased pain especially in the left hip. Patient reports no new motor or sensory deficits no new bowel or bladder incontinence or other complaints. Patient rates the pain as a 9 on scale 10 is worst over the past week 6 on average 5 its least and is a 5 today patient reports radiating severe tingling burning cramping and stabbing aching tight and shooting at times. Patient reports no loss of motor function but significant pain and significant disability with walking concerning the left hip with feeling that it "may go out" Physical Exam: VS: Blood pressure is 140/80 pulse 70 respirations 16 temperature is 97.7 F height is 5 feet 9 inches weight is 154 pounds PE: PHYSICAL EXAMINATION: GENERAL: The patient is awake, alert, oriented, appropriate, very pleasant javier anor HEENT: Shows normocephalic, atraumatic. Extraocular movements are intact and symmetrical. Oral cavity: Mucous membranes moist and pink. NECK: Shows anterior throat supple without palpable lymphadenopathy noted. Swallow reflex symmetrical. CHEST: Shows normal on inspection. Breath sounds are clear bilaterally, no rales rhonchi wheezes auscultated. HEART: Shows S1, S2 clear. No murmurs auscultated. ABDOMEN: Soft, nontender, nondistended, obese. BACK: Shows spine grossly in the midline. Normal-appearing cervical lordotic curvature. Cervical paraspinous but shows symmetrical inspection, with palpation shows some significant tenderness in the bilateral superior middle and lower distribution the cervical paraspinous muscles with very firm ropelike m usculature consistent with trigger point areas of musculature bilaterally somewhat worse on the right than the left and more tender on the right but without specific radiation. Patient does show good rotation of motion cervical spine both laterally as well as full extension full forward flexion without significant limitation. There is slightly increased thoracic kyphosis, thoracic paraspinous muscles show symmetrical on inspection with palpation some significant tenderness on the left compared to the right in the superior aspect and the right compared to the left in the middle and lower aspect of the thoracic paraspinous musculature very firm ropelike musculature consistent with trigger point areas of muscle without specific radiation. Some flattening of the lumbar lordotic curvature. Patient's lumbar spine shows symmetrical with inspection on palpation some moderate tenderness diffusely in the left superior medial and lateral gluteus distribution as well as the inferior aspect of the gluteus on the left only but not the right. Trigger point areas identified in the left gluteus again without radiation. Minor tenderness over the posterior superior iliac spine on the left but not the right and some minor tenderness over the sacroiliac region on the left not the right without radiation. The patient has good rotational motion of the lumbar spine, both laterally as well as extension and flexion without significant difficulty. No tenderness over the spinous processes, sacrum or sacroiliac regions. EXTREMITIES: Lower extremities show deep tendon reflexes 2+ in the patellar and tendo calcaneus tendons. Motor exam is 5 on a scale of 5 with right dorsiflexion, extension, quadriceps and hamstring flexion and 4/5 on the left. Peripheral pulses are 1 posterior tibial. No peripheral edema is noted bilaterally. Lower extremities are warm and dry to touch, equal in color and appearance. SKIN: Shows warm and dry, good turgor. No edema. No sores, rashes or bruising throughout. Procedure: Procedure: Options were discussed with the patient. Patient chart reviewed as her current medication regimen updated. Systems updated today as well. We will proceed with trigger point injections of the aforementioned and identified musculature. Risks were discussed including but not limited to bleeding infection possibility of intravascular injection sequelae spread to local anesthetic and numbness pneumothorax, and poor results regarding pain control. Patient understands wished to proceed. Return to clinic in approximately 4 weeks for follow-up or sooner as necessary. He was counseled as to activity level as well as side effects to be aware of. Medication Injected: Med Injected: Under sterile prep and drape patient in sitting position trigger points were identified in the bilateral cervical paraspinous posterior bilateral trapezius musculature bilateral thoracic paraspinous musculature and left gluteus musculature using sterile prep and 25-gauge needle each trigger point area was identified and injected after negative aspiration 1 cc 0.25% bupivacaine for a total of 12 cc of 0.25% bupivacaine. Patient tolerated procedure well and had no complications. Condition at Discharge: Condition at Discharge: Initial discharge stable, patient tolerated procedure well and had no complications. KELY MORTENSEN MD Nov 03, 2020 12:12
== END | disposition home or self-care (01) ==
LOC: PNCL 10:59
PROVIDERS: ATTEND Anesthesiology
DX: M51.36 Other intervertebral disc degeneration, lumbar region (principal); M96.1 Postlaminectomy syndrome, not elsewhere classified; M79.18 Myalgia, other site; M70.62 Trochanteric bursitis, left hip; Z79.899 Other long term (current) drug therapy; Z79.4 Long term (current) use of insulin; Z98.890 Other specified postprocedural states
CPT/HCPCS: 20553; J3490

== ENCOUNTER → 2021-01-12 | Outpatient (CLI) | payer MEDICARE, MEDICAID ==
[~2021-01-12] MED LIST changes: -BUPIVACAINE MPF 0.25% 30 ML VIAL. ONE
--- NOTE | 2021-01-12 11:09 | PDOC ---
Progress Note - Pain Clinic Date of Service: DOS: DATE: 01/12/21 TIME: 11:03 Diagnosis: Dx: Myofascial pain Lumbar degenerative disease lumbar postlaminectomy syndrome Left greater trochanteric bursitis History or Present Illness: HPI: 60-year-old female returns follow-up status post trigger point injections last seen November 03, 2020 and medication management. Patient reports is doing very well with the medication management plan trigger points were very helpful after her last visit as well. Patient reports pain is been returning now she be doing increased activity at home and use the work in her yard exacerbates the pain she admits pain in the base the neck more on the right than the left also in the upper right shoulder as well as the left shoulder mid upper back as well. Patient reports is a 9 on scale 10 is worse over the past week 8 on average 6 its least is an 8 today patient reported aching sharp dull tight cramping tingling burning stabbing at times a very hot sensation in the mid upper back. Patient reports no new motor or sensory deficits no side effects with her medications and reports about a 70% improvement with the medications alone. Physical Exam: VS: Blood pressure is 139/84 pulse 76 respirations 18 temperature 98.4 F weight is 157 pounds PE: PHYSICAL EXAMINATION: GENERAL: The patient is awake, alert, oriented, appropriate, very pleasant demeanor HEENT: Shows normocephalic, atraumatic. Extraocular movements are intact and symmetrical. Oral cavity: Mucous membranes moist and pink. Dentition is intact. NECK: Shows anterior throat supple without palpable lymphadenopathy noted. Swallow reflex symmetrical. CHEST: Shows normal on inspection. Breath sounds are clear bilaterally, no rales or rhonchi. HEART: Shows S1, S2 clear. No murmurs auscultated. ABDOMEN: Soft, nontender, nondistended, obese. No palpable organomegaly is no pascual. BACK: Shows spine grossly in the midline. Normal-appearing cervical lordotic curvature. Cervical paraspinous muscles show symmetrical on inspection with palpation some very firm ropelike musculature in the bilateral right greater than left posterior cervical paraspinous musculature in the superior middle and inferior aspect much more tender on the right but present bilaterally very firm ropelike musculature consistent with trigger point areas of musculature. This is true into the superior medial trapezius bilaterally as well as the rhomboid distribution again worse and more tender on the right than the left very firm ropelike musculature in the trapezius as well as the rhomboid muscle consistent with trigger point areas of musculature also into the superior aspect of the thoracic paraspinous musculature again more tender on the right than the left very firm ropelike muscles without specific radiation. There is slightly increased thoracic kyphosis, some minor flattening of the lumbar lordotic curvature. Lumbar paraspinous muscles show symmetrical on inspection, on palpation shows some moderate tenderness diffusely throughout the upper, middle and lower distribution of the paraspinous muscles, without radiation of pain. The patient has good rotational motion of the lumbar spine, both laterally as well as extension and flexion without significant difficultly. EXTREMITIES: Lower extremities show deep tendon reflexes 1+ in the patellar and tendo calcaneus tendons. Motor exam is 5 on a scale of 5 with right dorsiflexion, extension, quadriceps and hamstring flexion and 5/5 on the left. Peripheral pulses are 1+ posterior tibial. No peripheral edema is noted bilaterally. Lower extremities are warm and dry to touch, equal in color and appearance. SKIN: Shows warm and dry, good turgor. No edema. No sores, rashes or bruising throughout. Procedure: Procedure: Options were discussed the patient. Patient chart reviews her current medication regimen updated current review of systems updated today as well. We will proceed with trigger point injections of the identified musculature. Risk were discussed including but not limited to bleeding infection possibility of intravascular injection and sequelae spread local anesthetic and numbness pneumothorax and portals regarding pain control. Patient understands wished to proceed. Patient will return to clinic in approximate 4 weeks for follow-up, was counseled as to return appointment active level and side effects to be aware of. Also refill patient's medication hydrocodone as well as Zanaflex with instructions and side effects to be aware with each. Patient has had appropriate K tracks report as well as appropriate urinalyses to date and we will make this a 2-month refill patient return to clinic as scheduled or sooner as necessary. Medication Injected: Med Injected: Under sterile prep and drape patient in sitting position patient's cervical paraspinous musculature and trapezius musculature as well as the rhomboid and thoracic paraspinous posterior was identified and trigger point areas identified individually using a 25-gauge 1/2 inch needle at each identified trigger point area was injected after negative aspiration for total of 12 cc of 0.25% bupiva verito. Patient tolerated the procedure well had no complications. Condition at Discharge: Condition at Discharge: Condition at discharge stable, patient tolerated the procedure well and had no complications. KELY MORTENSEN MD Jan 12, 2021 11:09
--- NOTE | 2021-01-12 11:09 | PDOC4 ---
PROCEDURE Procedure Patient was consented for trigger point injections. Risk were discussed inc luding but not limited to bleeding infection possibly of intravascular ejection sequelae pneumothorax side effects of local anesthetic as well as poor results regarding pain control. Patient understands wished to proceed. Under sterile prep and drape patient in sitting position patient's cervical paraspinous musculature and trapezius musculature as well as the rhomboid and thoracic paraspinous posterior was identified and trigger point areas identified individually using a 25-gauge 1/2 inch needle at each identified trigger point area was injected after negative aspiration for total of 12 cc of 0.25% bupivacaine. Patient tolerated the procedure well had no complications. KELY MORTENSEN MD Jan 12, 2021 11:09
== END | disposition home or self-care (01) ==
LOC: PNCL 09:51
PROVIDERS: ATTEND Anesthesiology
DX: M79.18 Myalgia, other site (principal); M51.36 Other intervertebral disc degeneration, lumbar region; M96.1 Postlaminectomy syndrome, not elsewhere classified; M70.62 Trochanteric bursitis, left hip; Z79.4 Long term (current) use of insulin; Z79.899 Other long term (current) drug therapy; Z88.5 Allergy status to narcotic agent; Z88.8 Allergy status to other drugs, medicaments and biological substances
CPT/HCPCS: 20553; J3490

== ENCOUNTER → 2021-03-09 | Outpatient (CLI) | payer MEDICARE, MEDICAID ==
[~2021-03-09] MED LIST changes: -BUPIVACAINE MPF 0.25% 10 ML VIAL. ONE; +BUPIVACAINE MPF 0.25% 30 ML VIAL. ONE
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
--- NOTE | 2021-03-09 10:19 | PDOC4 ---
PROCEDURE Procedure Patient was consented for trigger point injections. Risk were discussed inc luding but not limited to bleeding infection possibility of intravascular injection and sequelae spread of local anesthetic and numbness pneumothorax and poor results regarding pain control. Patient understands wished to proceed. Under sterile prep and drape patient in sitting position patient cervical paraspinous posterior trapezius musculature rhomboid musculature supra and infr aspinatus musculature thoracic paraspinous posture was sterilely prepped and draped in usual fashion. Using 25-gauge needle and identified trigger point areas of musculature each was injected after negative aspiration for a total of 14 cc 0.25% bupivacaine. Patient tolerated the procedure well and had no complications. KELY MORTENSEN MD Mar 09, 2021 10:19
== END | disposition home or self-care (01) ==
LOC: PNCL 09:35
PROVIDERS: ATTEND Anesthesiology
DX: M79.18 Myalgia, other site (principal); M51.36 Other intervertebral disc degeneration, lumbar region; M96.1 Postlaminectomy syndrome, not elsewhere classified; M70.62 Trochanteric bursitis, left hip; Z79.4 Long term (current) use of insulin; Z79.899 Other long term (current) drug therapy; Z88.5 Allergy status to narcotic agent; Z88.8 Allergy status to other drugs, medicaments and biological substances
CPT/HCPCS: 20553; J3490

== ENCOUNTER → 2021-05-14 | Outpatient (CLI) | payer MEDICARE, MEDICAID ==
[~2021-05-14] MED LIST changes: -BUPIVACAINE MPF 0.25% 30 ML VIAL. ONE
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
== END | disposition home or self-care (01) ==
LOC: PNCL 11:00
PROVIDERS: ATTEND Anesthesiology
DX: M79.18 Myalgia, other site (principal); M51.36 Other intervertebral disc degeneration, lumbar region; M96.1 Postlaminectomy syndrome, not elsewhere classified; M70.62 Trochanteric bursitis, left hip; Z79.4 Long term (current) use of insulin; Z79.899 Other long term (current) drug therapy; Z88.5 Allergy status to narcotic agent; Z88.8 Allergy status to other drugs, medicaments and biological substances
CPT/HCPCS: 99212; G0463

== ENCOUNTER → 2021-07-23 | Outpatient (CLI) | payer MEDICARE, MEDICAID ==
[~2021-07-23] MED LIST changes: +BUPIVACAINE MPF 0.25% 10 ML VIAL. ONE; +CYCL10TA19 PO; -CYCL10TA2 PO; +methylPREDNISolone ACETATE 40 MG/ML VIAL. ONE
--- NOTE | 2021-07-23 12:59 | PDOC ---
Progress Note - Pain Clinic Date of Service: DOS: DATE: 07/23/21 TIME: 12:52 Diagnosis: Dx: Myofascial pain Lumbar degenerative disease with lumbar postlaminectomy syndrome Left greater trochanteric bursitis History or Present Illness: HPI: 61-year-old female returns for follow-up status trigger point injections and medication management patient doing very well with hydrocodone as well as Flexeril without significant side effects and with about 75% improvement with medications alone. Patient reports significant pain base the neck and shoulders is to be doing some increased work on her house since the foundation work with increased pain in the base of the shoulders base the neck upper back to the left than the right but present bilaterally also rating the right upper extremity as well some low back pain. Patient reports aching tight shooting cramping on fire in the base the neck and shoulders as well as constant severe patient reports no loss of motor function with significant tenderness in these regions with increased activity. Patient reports disturbing her sleep rates her pain is a 10 on scale 10 is worst 9 on average 7 its least as a 9 today. Patient reports did very well after last visit and again the medications are doing well in the interim times. Physical Exam: VS: Blood pressure is 192/112 pulse 103 respirations 18 temperature 98.4 F height is 5 feet 9 inches weight 155 PE: PHYSICAL EXAMINATION: GENERAL: The patient is awake, alert, oriented, appropriate, very pleasant in demeanor HEENT: Shows normocephalic, atraumatic. Extraocular movements are intact and symmetrical. Oral cavity: Mucous membranes moist and pink. NECK: Shows anterior throat supple without palpable lymphadenopathy noted. Swallow reflex symmetrical. CHEST: Shows normal on inspection. Breath sounds are clear bilaterally, no rales rhonchi or wheezes. HEART: Shows S1, S2 clear. No murmurs auscultated. ABDOMEN: Soft, nontender, nondistended, obese. No palpable organomegaly is noted. BACK: Shows spine grossly in the midline. Normal-appearing cervical lordotic curvature. Paraspinous muscles show significant tenderness in the cervical paraspinous muscles bilaterally middle and inferior aspect as well as into the superior medial trapezius as well as the lateral trapezius worse on the left and right but present bilaterally very firm ropelike musculature consistent with trigger point areas throughout the cervical and trapezius musculature slightly worse on the left than the right but present bilaterally is also true in the thoracic paraspinous musculature as well as into the suprascapular and infrascapular muscles with very firm ropelike musculature bilaterally very tender without specific radiation. There is slightly increased thoracic kyphosis, some minor flattening of the lumbar lordotic curvature. EXTREMITIES: Lower extremities show deep tendon reflexes 2 in the patellar and tendo calcaneus tendons. Motor exam is 4 on a scale of 5 with right dorsiflexion, extension, quadriceps and hamstring flexion and 4/5 on the left. Peripheral pulses are 1+ posterior tibial. No peripheral edema is noted bilaterally. Lower extremities are warm and dry to touch, equal in color and appearance. Upper extremity show deep tendon reflexes 2+ in the bicep tricep tendons, motor exam is strong with pet care worker strength rated 5 out of 5 as is bicep and tricep flexion. Shoulder shrug strong intact with some moderate tenderness with resistance but without loss of strength on resistance bilaterally. SKIN: Shows warm and dry, good turgor. No edema. No sores, rashes or bruising throughout. Procedure: Procedure: Options were discussed with the patient. Patient's old chart was reviewed as her current medication regimen updated current review of systems updated today as well. We will proceed with trigger point injections of the identified musculature, wrist were discussed including but not limited to bleeding infection possibility of intravascular injection sequelae spread local anesthetic numbness side effects steroid medication exposure fluoroscopy and portals regarding pain control. Patient understands wished to proceed. Patient return to clinic in approximate 4 weeks as scheduled. Patient has also had appropriate K tracks report as well as appropriate urinalyses to date and we will refill patient's hydrocodone via electronic prescription. We discussed patient's blood pressure today and he will follow up with her primary care physician, as her diastolic pressure is over 110 we discussed that this is an independent risk for myocardial infarction. Patient understands and agrees. Medication Injected: Med Injected: Under sterile prep and drape patient sitting position trigger points were terrified and using 25-gauge needle injected for negative aspiration each injection site of the bilateral cervical paraspinous posterior bilateral trap ezius muscles or bilateral thoracic paraspinous muscle bilateral supraspinatus and infraspinatus musculature for total of 14 cc 0.25% bupivacaine. Patient tolerated the procedure well had no complications. Condition at Discharge: Condition at Discharge: Condition at discharge is stable, paced tolerated procedure well and had no complications. KELY MORTENSEN MD Jul 23, 2021 12:59
--- NOTE | 2021-07-23 13:00 | PDOC4 ---
Procedure Note: ICD 10 Code: ICD 10 Code: M60.89 Procedure Note: Patient was consented for trigger point injections. Risk were discussed including but not limited to bleeding infection possibility of vascular ejection sequelae spread local anesthetic numbness pneumothorax side effects steroid medication and poor results regarding pain control. Patient understands wished to proceed. Under sterile prep and drape patient sitting position trigger points were terrified and using 25-gauge needle injected for negative aspiration each injection site of the bilateral cervical paraspinous posterior bilateral trapezius muscles or bilateral thoracic paraspinous muscle bilateral supraspinatus and infraspinatus musculature for total of 14 cc 0.25% bupivacaine. Patient tolerated the procedure well had no complications. KELY MORTENSEN MD Jul 23, 2021 13:00
== END | disposition home or self-care (01) ==
LOC: PNCL 11:27
PROVIDERS: ATTEND Anesthesiology
DX: M79.18 Myalgia, other site (principal); M51.36 Other intervertebral disc degeneration, lumbar region; M96.1 Postlaminectomy syndrome, not elsewhere classified; M70.62 Trochanteric bursitis, left hip; Z79.899 Other long term (current) drug therapy; Z88.5 Allergy status to narcotic agent; Z88.8 Allergy status to other drugs, medicaments and biological substances
CPT/HCPCS: 20553; J3490; J1030

== ENCOUNTER → 2021-08-21 | Outpatient (CLI) | payer MEDICARE, MEDICAID ==
[~2021-08-21] MED LIST changes: -BUPIVACAINE MPF 0.25% 10 ML VIAL. ONE; -methylPREDNISolone ACETATE 40 MG/ML VIAL. ONE
--- NOTE | 2021-08-21 12:51 | NUR ---
Patient called requesting refills. Verified name and , pharmacy and next appointment. Patient denies any new medications, new health problems or constipation. Patient states her pain level is an 8-10 due to increased activity.Ktracks checked call given to Dr Perez.
--- NOTE | 2021-08-21 17:25 | PDOC ---
Progress Note - Pain Clinic Date of Service: DOS: DATE: 08/21/21 TIME: 17:22 Diagnosis: Dx: Myofascial pain Lumbar degenerative disease lumbar postlaminectomy syndrome Left greater trochanteric bursitis History or Present Illness: HPI: Telemedicine visit today with patient's identity with full name as well as date of , total time spent 14 minutes. 61-year-old female via telemedicine visit today requesting refill of hydrocodone. Patient reports he is doing very well with this has a good reduction in pain by about 70 to 80% and without side effects. Patient has had appropriate K tracks portables appropriate urinalyses to date as well. Patient r eports still significant pain in the mid back upper back and low back neck and shoulders as well with some recent cold weather. Patient reports however she is doing fairly well she has been going to work on her floors at home which has her back more noticeably painful recently but is taking care of it with some heat and stretching exercises as well as massage. Patient reports no new motor or sensory deficits. Patient has been on very stable regimen and we will prescribe electronically hydrocodone 7.5 mg every 6 hours 120 and 10 mg for severe pain 40 mg for 30-day. Each. Patient instructions well side effects aware with the medications and will follow up in approximate 4 weeks as scheduled. Physical Exam: PE: KELY MORTENSEN MD Aug 21, 2021 17:25
== END | disposition home or self-care (01) ==
LOC: PNCL 10:04
PROVIDERS: ATTEND Anesthesiology
DX: M79.18 Myalgia, other site (principal); M51.36 Other intervertebral disc degeneration, lumbar region; M96.1 Postlaminectomy syndrome, not elsewhere classified; M70.62 Trochanteric bursitis, left hip; Z79.899 Other long term (current) drug therapy; Z88.5 Allergy status to narcotic agent; Z88.8 Allergy status to other drugs, medicaments and biological substances
CPT/HCPCS: 99212; G0463

== ENCOUNTER → 2021-10-03 | Outpatient (CLI) | payer MEDICARE, MEDICAID ==
--- NOTE | 2021-10-03 11:08 | PDOC ---
Progress Note - Pain Clinic Date of Service: DOS: DATE: 10/03/21 TIME: 11:03 Diagnosis: Dx: Myofascial pain Lumbar degenerative disease with lumbar postlaminectomy syndrome Left greater trochanteric bursitis Type 2 diabetes History or Present Illness: HPI: 61-year-old female returns status post medication management as well as trigger point injections patient did very well after trigger more injections in June of this past year but 80% improvement for about 5 weeks patient reports he began to be installing new floors in her house has had some increased pain in the back but then rested for about a week and the pain has become to subside to some ex tent in the mid upper back and shoulders as it normally is painful and is now more painful in the low back. Patient reports a 10 on scale 10 is worse over the past week 9 on average 6 its least is a 6 today patient what is aching tight shooting tingling burning stabbing can be radiating constant on and off and unbearable at times with activity getting better with time patient would like to give this more time to subside as it has been doing fairly well with rest. Patient reports she does well with her medications hydrocodone without any significant side effects. Patient reports about a 70 to 75% improved with the medication alone and again tolerating it well without side effects. Patient has had appropriate K tracks report as well as appropriate urinalyses as well to date. Patient reports no bowel or bladder incontinence no loss of motor function with significant tenderness in the low back more than the upper back at this time. Physical Exam: VS: Blood pressure is 131/80 pulse 101 respirations 16 temperature is 98.2 F height is 5 feet 9 inches weight is 154 pounds PE: PHYSICAL EXAMINATION: GENERAL: The patient is awake, alert, oriented, appropriate, very pleasant in demeanor HEENT: Shows normocephalic, atraumatic. Extraocular movements are intact and symmetrical. Oral cavity: Mucous membranes moist and pink. NECK: Shows anterior throat supple without palpable lymphadenopathy noted. Swallow reflex symmetrical. CHEST: Shows normal on inspection. Breath sounds are clear bilaterally, distant but no rales or rhonchi. HEART: Shows S1, S2 clear. No murmurs auscultated. ABDOMEN: Soft, nontender, nondistended, obese. No palpable organomegaly is noted. BACK: Shows spine grossly in the midline. Normal-appearing cervical lordotic curvature. There is slightly increased thoracic kyphosis, some minor flattening of the lumbar lordotic curvature. Lumbar paraspinous muscles show symmetrical on inspection, on palpation shows some moderate tenderness diffusely throughout the upper, middle and lower distribution of the paraspinous muscles bilaterally and also into the lower thoracic paraspinous musculature, firm and tender, with lumbar paraspinous muscular very firm and tender with trigger point areas of musculature in the low lumbar and mid lumbar distribution bilaterally slightly worse on the right than the left. Patient's cervical paraspinous muscle as well as trapezius musculature upper thoracic paraspinous muscular is firm and tender as well with trigger point areas again less painful than on previous exam but still significant.. No tenderness over the spinous processes, sacrum or sacroiliac regions. EXTREMITIES: Lower extremities show deep tendon reflexes 2+ in the patellar and tendo calcaneus tendons. Motor exam is 4 on a scale of 5 with right dorsiflexion, extension, quadriceps and hamstring flexion and 4/5 on the left. Peripheral pulses are 1+ posterior tibial. No peripheral edema is noted bilaterally. Lower extremities are warm and dry to touch, equal in color and appearance. Upper extremity show deep tendon reflexes 2+ in the bicep tricep tendons, motor exam strong with tiler's assistant strength rated 5 out of 5 as is bicep and tricep flexion bilaterally. SKIN: Shows warm and dry, good turgor. No edema. No sores, rashes or bruising throughout. Procedure: Procedure: Options were discussed with the patient. Patient chart was viewed as her current medication regimen updated current review of systems updated today as well. We will hold on any further procedures at this time as patient would like to back rest and see how this does first, will refill patient's medication via electronic prescription for hydrocodone with instructions and side effects to be aware of discussed with the medications. Again patient has had appropriate K tracks report as well as appropriate urinalysis to date we will have urinalysis done today as part of routine screening as well. Patient to follow-up in approximately 30 days as scheduled. Medication Injected: Med Injected: None Condition at Discharge: Condition at Discharge: Condition at discharge is stable. KELY MORTENSEN MD Oct 03, 2021 11:08
== END | disposition home or self-care (01) ==
LOC: PNCL 10:16
PROVIDERS: ATTEND Anesthesiology
DX: M51.16 Intervertebral disc disorders with radiculopathy, lumbar region (principal); M96.1 Postlaminectomy syndrome, not elsewhere classified; M70.62 Trochanteric bursitis, left hip; G89.29 Other chronic pain; E11.9 Type 2 diabetes mellitus without complications; M79.18 Myalgia, other site; Z98.890 Other specified postprocedural states; Z79.899 Other long term (current) drug therapy
CPT/HCPCS: 99212; G0463

== ENCOUNTER → 2021-11-08 | Outpatient (CLI) | payer MEDICARE, MEDICAID ==
--- NOTE | 2021-11-08 08:48 | NUR ---
Patient called requesting a refill, verified name, , pharmacy, next appointment. patient states her pain is worse since she has been working more. patient denied any constipation or new allergies. [facility]tracts is correct. Call transferred to Dr Perez.
--- NOTE | 2021-11-08 08:55 | PDOC ---
Progress Note - Pain Clinic Date of Service: DOS: DATE: 11/08/21 TIME: 08:53 Diagnosis: Dx: Myofascial pain Lumbar degenerative disease lumbar postlaminectomy syndrome Left greater trochanteric bursitis History or Present Illness: HPI: Telemedicine visit today with patient's identity verified with full name as well as full date of , total time spent 1 14 minutes. 61-year-old female via telemedicine visit today with a request for refill of hydrocodone. Patient reports doing very well we had seen her in person September I reports she is doing very well with the medication she was increasing some activity working on some new floors in her home exacerbated the pain in the neck and shoulders to fairly significant degree however patient reports the pain is decreasing the pain to about a 70% level without side effects. Patient reports far pain is increased now we did discuss increasing stretching strength exercise as well as heat applications and stretching with heat as well as warm and moist heat. Patient is familiar with these modalities and will do these as well. Patient has had appropriate K tracks report as well as appropriate urinalyses as well to date. We will represcribed hydrocodone 7.5 mg 120 tablets also 10 mg 40 tablets for severe pain. Patient's been on this regimen for extended period of time and does very well with this and without side effects. Patient was given instructions as well as side effects beware of with each of the medications and will follow up in approximately 30 days as scheduled. Physical Exam: PE: KELY MORTENSEN MD Nov 08, 2021 08:55
== END | disposition home or self-care (01) ==
LOC: PNCL 08:04
PROVIDERS: ATTEND Anesthesiology
DX: M79.18 Myalgia, other site (principal); M96.1 Postlaminectomy syndrome, not elsewhere classified; M51.36 Other intervertebral disc degeneration, lumbar region; M70.62 Trochanteric bursitis, left hip; Z79.4 Long term (current) use of insulin; Z79.899 Other long term (current) drug therapy; Z88.5 Allergy status to narcotic agent; Z88.8 Allergy status to other drugs, medicaments and biological substances
CPT/HCPCS: 99212; G0463

== ENCOUNTER → 2021-12-11 | Outpatient (CLI) | payer MEDICARE, MEDICAID ==
[~2021-12-11] MED LIST changes: +BUPIVACAINE MPF 0.25% 10 ML VIAL. ONE
--- NOTE | 2021-12-11 11:03 | PDOC ---
Progress Note - Pain Clinic Date of Service: DOS: DATE: 12/11/21 TIME: 10:57 Diagnosis: Dx: Myofascial pain Lumbar degenerative disease with lumbar postlaminectomy syndrome History or Present Illness: HPI: 61-year-old female returns for follow-up status post medication management with hydrocodone patient is doing very well with this on a very stable regimen patient reports of increasing some activity doing again a floor remodeling at her house causing increased pain in the base the neck and shoulder more on the right than the left side with increased pain base the neck and shoulder right upper extremity rating to the hand with numbness and tingling in the fingers patient reports this is from repetitive motion at home but the pain is above the level that the hydrocodone has been controlling as she generally does very well with this and again has no side effects patient reports pain is a 10 on scale 10 is worse over the past week 9 on average 7 its least is a 9 today patient comes aching tight and shooting in the right arm across the shoulders bilaterally upper back mid back in the bilateral inferior aspect of the cervical spine as well as stabbing pain is burning and cramping and tingling in the neck as well as the shoulders patient reports radiating can be constant severe unbearable at times patient reports is awakened from sleep about once or twice a night over the past few weeks she has to reposition and take pain medicine to get back to sleep. Patient reports no loss of motor function the pain to be getting worse with time. Physical Exam: VS: Blood pressure is 146/72 pulse 85 respirations 16 temperature is 98.5 F height is 5 foot 8 inches weight is 157 pounds. PE: PHYSICAL EXAMINATION: GENERAL: The patient is awake, alert, oriented, appropriate, very pleasant in demeanor HEENT: Shows normocephalic, atraumatic. Extraocular movements are intact and symmetrical. Oral cavity: Mucous membranes moist and pink. Dentition is intact. NECK: Shows anterior throat supple without palpable lymphadenopathy noted. Swallow reflex symmetrical. CHEST: Shows normal on inspection. Breath sounds are clear bilaterally,, no rales or rhonchi auscultated. HEART: Shows S1, S2 clear. No murmurs auscultated. ABDOMEN: Soft, nontender, nondistended. No palpable organomegaly is noted. BACK: Shows spine grossly in the midline. Normal-appearing cervical lordotic curvature. Cervical paraspinous but show symmetrical with inspection of palpation some significant tenderness in the inferior aspect of the cervical paraspinous muscular very firm ropelike musculature consistent with trigger point areas more on the right than the left are present bilaterally also in the superior medial trapezius bilaterally with very firm ropelike musculature again right greater than left in the superior and lateral trapezius as well as the inferior trapezius again trigger points on the right side greater than left but present bilaterally without radiation on palpation thoracic paraspinous muscles show symmetrical with inspection on palpation is very firm ropelike musculature in the thoracic paraspinous muscle as well as the suprascapular muscle on the right with very firm trigger point areas of ropelike musculature as well again without radiation on palpation. There is slightly increased thoracic kyphosis, some minor flattening of the lumbar lordotic curvature. Lumbar paraspinous muscles show symmetrical on inspection, on palpation shows some moderate tenderness diffusely throughout the upper, middle and lower distribution of the paraspinous muscles, but without specific trigger points, without radiation of pain. The patient has good rotational motion of the lumbar spine, both laterally as well as extension and flexion without significant difficulty. No tenderness over the spinous processes, sacrum or sacroiliac regions. EXTREMITIES: Lower extremities show deep tendon reflexes 2+ in the patellar and tendo calcaneus tendons. Motor exam is 5 on a scale of 5 with right dorsiflexion, extension, quadriceps and hamstring flexion and 5/5 on the left. Peripheral pulses are 1+ posterior tibial. No peripheral edema is noted bilaterally. Lower extremities are warm and dry to touch, equal in color and appearance. Upper extremity show deep tendon reflexes 2+ in the bicep tricep t endons, motor exam strong with bee robber strength rated 5 out of 5 as is bicep tricep flexion bilaterally. SKIN: Shows warm and dry, good turgor. No edema. No sores, rashes or bruising throughout. Procedure: Procedure: Options were discussed with patient. Patient's chart was viewed as her current medication regimen updated current review of systems updated today as well. We will proceed with trigger point injections of the bilateral cervical paraspinous posterior, bilateral trapezius posterior, bilateral thoracic paraspinous posture, right suprascapular musculature. Risk discussed including but not l imited to bleeding infection possibility of intravascular injection sequelae spread of local anesthetic and numbness pneumothorax, and poor results regarding pain control. Patient understands and wishes to proceed. Patient will return to the clinic in approximate 4 weeks for follow-up, was counseled as to return appointment, active level, and side effect. Also, will call in patient's hydrocodone with instructions side effects aware of discussed with each of medications. Patient has had appropriate K tracks report as well as appropriate urinalyses to date as well. Medication Injected: Med Injected: Patient sitting position under sterile prep and drape patient's cervical paraspinous musculature, bilateral trapezius musculature, bilateral thoracic paraspinous musculature, right suprascapular musculature, with trigger points identified in each of these muscular groups using a 25-gauge needle after negative aspiration each injection site total of 12 cc 0.25% bupivacaine injecte d. Patient tolerated procedure well and had no complications. Condition at Discharge: Condition at Discharge: Condition at discharge stable, patient tolerated the procedure well had no complications. KELY MORTENSEN MD Dec 11, 2021 11:03
--- NOTE | 2021-12-11 11:04 | PDOC4 ---
Procedure Note: ICD 10 Code: ICD 10 Code: M60.89 Procedure Note: Patient was consented for trigger point injections, bilateral trapezius musculature, bilateral cervical paraspinous muscular, bilateral thoracic paraspinous musculature, right suprascapular musculature. Risk were discussed including but not limited to bleeding infection possibility of intravascular injection sequelae pneumothorax, spread of local anesthetic numbness, and poor r esults regarding pain control. Patient in sitting position under sterile prep and drape patient's cervical paraspinous musculature, bilateral trapezius musculature, bilateral thoracic paraspinous musculature, right suprascapular musculature, with trigger points identified in each of these muscular groups using a 25-gauge needle after negative aspiration each injection site total of 12 cc 0.25% bupivacaine injected. Patient tolerated procedure well and had no complications. KELY MORTENSEN MD Dec 11, 2021 11:04
== END | disposition home or self-care (01) ==
LOC: PNCL 10:02
PROVIDERS: ATTEND Anesthesiology
DX: M79.18 Myalgia, other site (principal); M51.36 Other intervertebral disc degeneration, lumbar region; M96.1 Postlaminectomy syndrome, not elsewhere classified; Z79.899 Other long term (current) drug therapy; Z88.5 Allergy status to narcotic agent; Z88.8 Allergy status to other drugs, medicaments and biological substances
CPT/HCPCS: 20553; J3490

== ENCOUNTER → 2022-01-10 | Outpatient (CLI) | payer MEDICARE, MEDICAID ==
[~2022-01-10] MED LIST changes: -BUPIVACAINE MPF 0.25% 10 ML VIAL. ONE
--- NOTE | 2022-01-10 15:42 | PDOC ---
Progress Note - Pain Clinic Date of Service: DOS: DATE: 01/10/22 TIME: 15:40 Diagnosis: Dx: Myofascial pain Lumbar degenerative disease lumbar postlaminectomy syndrome Left greater trochanteric bursitis History or Present Illness: HPI: Telemedicine visit today with patient standing verified with full name as well as full date of , total time spent 12 minutes, telephone voice only 61-year-old female via telemedicine visit today requesting refill of hydrocodone 7.5 mg. Patient reports has been doing fairly well with the medication we had prescribed additional stronger medication for her to take intermittently in the past routinely but she reports that she is not need that at this time as she has not used the 1 that she was prescribed last month. Patient was also getting 10mg hydrocodone and still has those available and is not requesting refill of that as she has not needed them nearly as much as normal. Patient reports no side effects with medications has been very active lately with the doing projects and doing some home repair which she does almost daily. Patient reports pain however with a helpful medication and without any side effects. Patient has had appropriate K tracks report as well as appropriate urinalyses to date. We will refill patient's hydrocodone 7.5 mg with instructions and side effect beware discussed for 1month prescription. She will follow-up in approximate 30 days as scheduled. Physical Exam: PE: KELY MORTENSEN MD Jan 10, 2022 15:42
--- NOTE | 2022-01-10 15:43 | NUR ---
Patient called requesting medication refill , name , , pharmacy, medications verified. Patient denied any new medical problems or constipation. verified next appointment. Call transferred to Dr Perez.
== END | disposition home or self-care (01) ==
LOC: PNCL 13:23
PROVIDERS: ATTEND Anesthesiology
DX: M79.18 Myalgia, other site (principal); M51.36 Other intervertebral disc degeneration, lumbar region; M96.1 Postlaminectomy syndrome, not elsewhere classified; M70.62 Trochanteric bursitis, left hip; Z79.4 Long term (current) use of insulin; Z79.899 Other long term (current) drug therapy; Z88.8 Allergy status to other drugs, medicaments and biological substances
CPT/HCPCS: 99212; G0463

== ENCOUNTER → 2022-02-11 | Outpatient (CLI) | payer MEDICARE, MEDICAID ==
[~2022-02-11] MED LIST changes: +BUPIVACAINE MPF 0.25% 10 ML VIAL. ONE; +CELE200C PO; +DEXAMETHASONE PRES.FREE 10 MG/ML VIAL. ONE
--- NOTE | 2022-02-11 11:21 | PDOC ---
Progress Note - Pain Clinic Date of Service: DOS: DATE: 02/11/22 TIME: 11:16 Diagnosis: Dx: Myofascial pain Lumbar degenerative disease lumbar postlaminectomy syndrome With greater trochanteric bursitis History or Present Illness: HPI: 61-year-old female returns for follow-up status post trigger point injections as well as medication management hydrocodone 7.5 mg and 10mg sparingly. Patient reports doing very well to the current medication regimen without any significant side effects chief complaint is pain base the neck and shoulders upper back and mid back, after recent increase in activity patient is still remodeling the aspect of her home and has had increased activity with significant increasing pain base the neck shoulders and specially the mid upper back patient reports is slightly worse on the left than the right but present bilaterally into the shoulders not radiating into the upper extremities however patient reports it is tight cramping burning tingling aching can be dull as well as sharp at times and unbearable with repetitive motion and activity weightbearing reaching over her head with her arms and repetitive movements even no driving using her arms to steer the car is becoming more painful. Patient rates her pain as a 9 on scale 10 is worse over the past week 8 on average 5 its least is a 5 today. Patient reports no loss of motor function no bowel or bladder incontinence. Physical Exam: VS: Blood pressure is 139/74 pulse 90 respirations 18 temperature 98.6 F height is 5 feet 8 inches weight is 159 pounds. PE: PHYSICAL EXAMINATION: GENERAL: The patient is awake, alert, oriented, appropriate, very pleasant in demeanor HEENT: Shows normocephalic, atraumatic. Extraocular movements are intact and symmetrical. Oral cavity: Mucous membranes moist and pink. Dentition is intact. NECK: Shows anterior throat supple without palpable lymphadenopathy noted. Swallow reflex symmetrical. CHEST: Shows normal on inspection. Breath sounds are clear bilaterally. HEART: Shows S1, S2 clear. No murmurs auscultated. ABDOMEN: Soft, nontender, nondistended. No palpable organomegaly is noted. BACK: Shows spine grossly in the midline. Normal-appearing cervical lordotic curvature. There is slightly increased thoracic kyphosis, some minor flattening of the lumbar lordotic curvature. Lumbar paraspinous muscles show symmetrical on inspection, on palpation shows some moderate tenderness diffusely throughout the upper, middle and lower distribution of the paraspinous muscles with significant tenderness in the middle and inferior aspect cervical paraspinous muscular very firm ropelike musculature bilaterally also into the superior medial trapezius and lateral trapezius again worse on the left than the right with a very firm ropelike musculature consistent with trigger point areas of musculature once again these are also very tender and easily palpable in the rhomboid musculature in the thoracic paraspinous muscles bilaterally right essentially equal to left with very firm ropelike musculature in this region as well without radiation on palpation with very firm tenderness with palpation consistent with trigger point regions of muscle in this region also. The patient has good rotational motion of the lumbar spine, both laterally as well as extension and flexion without significant difficulty. No tenderness over the spinous processes, sacrum or sacroiliac regions. EXTREMITIES: Lower extremities show deep tendon reflexes 2+ in the patellar and tendo calcaneus tendons. Motor exam is 5 on a scale of 5 with right dorsiflexion, extension, quadriceps and hamstring flexion and 5/5 on the left. Peripheral pulses are 1 to posterior tibial. No peripheral edema is noted bilaterally. Lower extremities are warm and dry. Upper extremities show deep tendon reflexes 2+ in the bicep and triceps tendons, motor exam strong with pattern puncher strength rated 5 out of 5 as is bicep and tricep flexion bilaterally. SKIN: Shows warm and dry, good turgor. No edema. No sores, rashes or bruising throughout. Procedure: Procedure: Options were discussed with the patient. Patient's old chart was reviewed as her current medication regimen updated current review of systems updated today as well. We will proceed with trigger point injections of the identified musculature in the bilateral cervical paraspinous posterior bilateral trapezius muscular bilateral thoracic paraspinous musculature. Risk were discussed including not limited to bleeding infection possibility of intravascular injection sequelae spread local anesthetic numbness pneumothorax, and poor results regarding pain control. Patient understands wishes to proceed. Patient return to clinic in approximately 4 weeks for follow-up, was counseled as return appointment, activity level, and side effects to be aware of. Patient be given refill prescription of hydrocodone 7.5 and 10 mg as prescribed. Patient is given instructions well side effects beware of each of the medications. Medication Injected: Med Injected: Patient sitting position under sterile prep and drape cervical paraspinous posterior bilaterally as well as bilateral trapezius muscular bilateral thoracic paraspinous muscular bilateral rhomboid musculature trigger points were identified using a 25-gauge needle were injected after negative aspiration each injection site total of 12 cc 0.25% bupivacaine. Patient tolerated procedure well and had no complications. Condition at Discharge: Condition at Discharge: Condition at discharge stable, patient tolerated procedure well and had no complications. KELY MORTENSEN MD February 11, 2022 11:21
--- NOTE | 2022-02-11 11:22 | PDOC4 ---
Procedure Note: ICD 10 Code: ICD 10 Code: M60.89 Procedure Note: Patient was consented for trigger point injections. Risk were discussed including but not limited to bleeding infection possibility intravascular injection sequelae spread local anesthetic numbness pneumothorax and portals regarding pain control. Patient understands wished to proceed. Patient sitting position under sterile prep and drape cervical paraspinous posterior bilaterally as well as bilateral trapezius muscular bilateral thoracic paraspinous muscular bilateral rhomboid musculature trigger points were identified using a 25-gauge needle were injected after negative aspiration each injection site total of 12 cc 0.25% bupivacaine. Patient tolerated procedure well and had no complications. KELY MORTENSEN MD February 11, 2022 11:22
== END | disposition home or self-care (01) ==
LOC: PNCL 09:57
PROVIDERS: ATTEND Anesthesiology
DX: M79.18 Myalgia, other site (principal); M96.1 Postlaminectomy syndrome, not elsewhere classified; M51.16 Intervertebral disc disorders with radiculopathy, lumbar region; M70.60 Trochanteric bursitis, unspecified hip; Z79.4 Long term (current) use of insulin; Z79.899 Other long term (current) drug therapy; Z88.5 Allergy status to narcotic agent; Z88.8 Allergy status to other drugs, medicaments and biological substances
CPT/HCPCS: 20553; J3490; J1100